=== PATIENT | female | born 1965 | race Two or more races ===

== ENCOUNTER 2021-04-17 08:58 | Outpatient (REF) | payer BC, SELFPAY ==
[2021-04-17 10:22] LABS: Binax Internal Control QC Valid; Binax Now Covid-19 Ag Positive (Negative)
== END 2021-04-17 08:59 | disposition home or self-care (01) ==
LOC: HO.LAB 08:58
PROVIDERS: Visit Provider Internal Medicine
DX: Z20.822 Contact with and (suspected) exposure to COVID-19 (principal)
CPT/HCPCS: 36415; C9803

== ENCOUNTER 2021-04-24 09:07 | Emergency (ER) | payer BC, SELFPAY ==
--- NOTE | ~2021-04-24 | XR_ITS ---
EXAMINATION: XR CHEST CLINICAL INFORMATION: SOB. COMPARISON: Chest 12/03/2017 TECHNIQUE: Frontal view of the chest was obtained. FINDINGS: The lungs are well-expanded and clear of acute process. The heart size and pulmonary vascularity is normal. No gross bony abnormality seen. XR/XR chest 1V IMPRESSION: Unremarkable chest examination.
[2021-04-24 09:09] VITALS: BP 181/108; PULSE 92; RESP 20; TEMP 36.6; O2SAT 97; BMI 37.2
--- NOTE | 2021-04-24 09:52 | ECG_ITS ---
Test Reason : chest pain/tightness Blood Pressure : / mmHG Vent. Rate : 073 BPM Atrial Rate : 073 BPM P-R Int : 114 ms QRS Dur : 084 ms QT Int : 404 ms P-R-T Axes : 060 053 038 degrees QTc Int : 445 ms Normal sinus rhythm Normal ECG When compared with ECG of 03-DEC-2017 16:14, No significant changes seen Referred By: Abigail Garay Electronically Signed By:BEBA SIGALA
--- NOTE | 2021-04-24 09:53 | ED_ITS ---
HPI - SOB/Dyspnea General Chief Complaint: Dyspnea Stated Complaint: cough diff breathing Time Seen by Provider: 04/24/21 09:33 Source: patient Mode of arrival: ambulatory Limitations: no limitations History of Present Illness HPI Narrative: Patient comes to emergency room complaining coughing and shortness of breath. Patient tested positive for COVID-19 on 04/17/2021. Patient states that she was improving, yesterday she return to work, when the mask makes her feel short of breath, had to leave her work. Patient denies chest pain, no calf pain. Related Data Previous Rx's Medication Instructions Recorded benznidazole 100 mg tablet 100 mg PO TID PRN #10 tab 04/24/21 Allergies Allergy/AdvReac Type Severity Reaction Status Date / Time No Known Allergies Allergy Unverified 12/27/19 16:14 Review of Systems Review of Systems: Constitutional : No Weight loss, No Fever, No Chills, No Night Sweats, No Fatigue, No Malaise ENT/Mouth : No Hearing loss, No Ear Pain, No Nasal Congestion, No Sinus Pain, No Hoarseness, No sore throat, No Rhinorrhea, No Swallowing Difficulty Eyes: No Eye Pain, No Swelling, No Redness, No Foreign Body, No Discharge, No Vision Changes Cardiovascular : No Chest Pain, No SOB, No Dyspnea on Exertion, No Orthopnea, No Edema, No Palpitations Respiratory : Complaining of Cough, No Sputum, complaining of shortness of breath which is worse when she wears her mask Gastrointestinal : No Nausea, No Vomiting, No Diarrhea, No Constipation, No abdominal Pain, No Hematochezia, No Melena Genitourinary : no irregular bleeding, No Dysuria, No Urinary Frequency, No Hematuria, No Urinary Incontinence, No Urgency, No Flank Pain, No Urinary Flow Changes, No Hesitancy Musculoskeletal : No joint pain, No Myalgias, No Joint Swelling Skin : No Skin Lesions, No rash Neuro : No Weakness, No Numbness, No Paresthesias, No Loss of Consciousness, No Dizziness, complaining of Headache Psych : No Anxiety/Panic, No Depression, No SI/HI/AH/VH, No Social Issues, Heme/Lymph: No Bruising, No Bleeding,No Lymphadenopathy Endocrine : No Polyuria, No Polydipsia, No Temperature Intolerance [facility] Past Medical History Medical History No pertinent past medical history Surgical History No pertinent past surgical history Social History Social History Advance Directives: No Advance Directives Information Provided: Yes Patient : No Physical Exam Vital Signs: Vital Signs: Last Vital Signs Temp 97.9 F 04/24/21 09:09 Pulse 72 04/24/21 10:20 Resp 16 04/24/21 10:20 BP 140/84 H 04/24/21 10:20 Pulse Ox 95 04/24/21 10:20 BMI result Body Mass Index 37.2 Const: Other: Appearance: Alert. Oriented X3. No acute distress. Well- appearing, seems anxious Eyes: Pupils equal, round and reactive to light. ENT: Pharynx normal. Neck: Normal inspection. Neck supple. No lymph nodes noted. No crepitus CVS: Normal heart rate and rhythm. Pulses normal. Normal S1 and S2 Respiratory: No respiratory distress. Breath sounds normal. No Wheezing. No rales Abdomen: Soft and nontender. No rigidity. No distention. good BS x4 Skin: Skin warm and dry. Normal skin color. Normal skin turgor. Extremities: No lower extremity edema. No Lacerations. No Rash Neuro: Oriented X 3. No motor deficit. No sensory deficit. Moving all extermities. No slurred speech. Course Course Course Narrative: Patient's oxygen saturation 95% on room air. We had patient walking around her room checking her oxygen, her oxygen did not drop. Chest x- ray unremarkable, D-dimer negative. MDM - SOB/Dyspnea Lab Data Result diagrams: 04/24/21 10:06 04/24/21 10:06 Labs: Lab Results 04/24/21 04/24/21 04/24/21 Range/Units 10:06 10:06 10:06 WBC 6.6 (4.8-10.8) X10*3/uL RBC 5.30 (4.20-5.50) X10*6/uL Hgb 15.2 (12.0-16.0) g/dl Hct 45.5 (37.0-47.0) % MCV 85.8 (80.0-98.0) fL MCH 28.7 (27.0-33.0) pg MCHC 33.4 (31.0-35.0) g/dl RDW 12.3 (11.0-16.0) % Plt Count 180 (160-400) X10*3/uL MPV 12.0 (9.4-12.3) fL Immature Gran % (Auto) 0.2 (0.0-0.4) % Neut % (Auto) 64.2 (45-73) % Lymph % (Auto) 27.9 (20-40) % [place] % (Auto) 6.5 (2-11) % Eos % (Auto) 0.9 (0-4) % Baso % (Auto) 0.3 (0-2) % Lymph # (Auto) 1.8 (1.2-4.9) X10*3/uL [place] # (Auto) 0.4 (0.1-1.2) X10*3/uL Eos # (Auto) 0.1 (0.0-0.4) X10*3/uL Baso # (Auto) 0.0 (0.0-0.2) X10*3/uL Abs Immat Gran (auto) 0.01 (0.00-0.03) X10*3/uL Absolute Neuts (auto) 4.2 (2.0-8.3) x10*3/uL Absolute Nucleated RBC 0.000 (0.0-0.012) X10*3/uL Nucleated RBC % (auto) 0.0 (0.0-0.2) /100WBC D-Dimer High Sensitivty < 150 NG/ML Sodium 137 (135-145) mmol/L Potassium 4.1 (3.3-5.1) mmol/L Chloride 106 (96-108) mmol/L Carbon Dioxide 23 (22-29) mmol/L Anion Gap 12 (12-20) BUN 10 (9-16) mg/dL Creatinine 0.77 (0.5-1.4) mg/dL Estim Creat Clear Calc 89.5 Estimated GFR > 60 Random Glucose 98 (60-115) mg/dL Calcium 9.3 (8.4-10.2) mg/dL Total Bilirubin 0.3 (0.0-1.0) mg/dL Direct Bilirubin < 0.2 (0.0-0.5) mg/dL AST 13 (5-31) U/L ALT 12 (0-31) U/L Alkaline Phosphatase 71 (39-117) U/L Total Protein 7.4 (6.5-8.0) g/dL Albumin 4.0 (3.5-5.0) g/dL Imaging Data Chest x-ray: Radiologist's impression: The lungs are well-expanded and clear of acute process. The heart size and pulmonary vascularity is normal. No gross bony abnormality seen. XR/XR chest 1V IMPRESSION: Unremarkable chest examination. Discharge Plan Discharge Clinical Impression: COVID-19 Patient Disposition: Home, Self-Care Instructions: COVID-19 (Coronavirus Disease 2019) (ED) Additional Instructions: Please follow-up with your primary care physician tomorrow. If you have any worsening or new symptoms, please return to the emergency room or call 911 Prescriptions: New benznidazole 100 mg tablet 100 mg PO TID PRN (Reason: cough) Qty: 10 RF: 0 Stand Alone Forms: Work/School Release
[2021-04-24 10:09] LABS: MANUAL DIFF FLAG NO
[2021-04-24 10:11] LABS: Basophils Percent Auto 0.3 % (0-2); Eosinophils Absolute Auto 0.1 X10*3/uL (0.0-0.4); Eosinophils Percent Auto 0.9 % (0-4); Hematocrit 45.5 % (37.0-47.0); Hemoglobin 15.2 g/dl (12.0-16.0); Imm Gran Abs Auto 0.01 X10*3/uL (0.00-0.03); Imm Gran Pct Auto 0.2 % (0.0-0.4); Lymphocytes Absolute Auto 1.8 X10*3/uL (1.2-4.9); Lymphocytes Percent Auto 27.9 % (20-40); Mean Corpuscular HGB Conc 33.4 g/dl (31.0-35.0); Mean Corpuscular Hemoglobin 28.7 pg (27.0-33.0); Mean Corpuscular Volume 85.8 fL (80.0-98.0); Monocytes Absolute Auto 0.4 X10*3/uL (0.1-1.2); Monocytes Percent Auto 6.5 % (2-11); Neutrophils Absolute Auto 4.2 x10*3/uL (2.0-8.3); Neutrophils Percent Auto 64.2 % (45-73); Platelet Count 180 X10*3/uL (160-400); Red Cell Distribution Width 12.3 % (11.0-16.0); White Blood Count 6.6 X10*3/uL (4.8-10.8)
[2021-04-24 10:20] VITALS: BP 140/84; PULSE 72; RESP 16; O2SAT 95
[2021-04-24 10:20] LABS: D Dimer High Sensitivity < 150 NG/ML
[2021-04-24 10:27] LABS: Alanine Aminotransferase 12 U/L (0-31); Alkaline Phosphatase 71 U/L (39-117); Anion Gap 12 (12-20); Aspartate Amino Transferase 13 U/L (5-31); Bilirubin Direct < 0.2 mg/dL (0.0-0.5); Bilirubin Total 0.3 mg/dL (0.0-1.0); Blood Urea Nitrogen 10 mg/dL (9-16); Calcium 9.3 mg/dL (8.4-10.2); Chloride 106 mmol/L (96-108); Creatinine Clr Calc Pharmacy 89.5; Estimated Glomerular Filt Rate > 60; Glucose Random 98 mg/dL (60-115); Potassium 4.1 mmol/L (3.3-5.1); Sodium 137 mmol/L (135-145); Total Protein 7.4 g/dL (6.5-8.0)
[2021-04-24 10:37] LABS: Carbon Dioxide 23 mmol/L (22-29)
[2021-04-24] MEDS: Benzonatate 100 MG CAPSULE 200 MG PO (12:24)
== END 2021-04-24 13:23 | disposition home or self-care (01) ==
PROVIDERS: Emergency Provider Emergency Medicine; PCP Internal Medicine
DX: U07.1 COVID-19 (principal); R06.02 Shortness of breath; R50.9 Fever, unspecified; Z79.899 Other long term (current) drug therapy
CPT/HCPCS: 36415; 71045; 80048; 80076; 85025; 85379; 93005; 99283; 99284

== ENCOUNTER 2021-05-30 06:35 | Outpatient (REF) | payer BC, SELFPAY ==
[2021-05-30 11:33] LABS: Alanine Aminotransferase 14 U/L (0-31); Albumin Level 3.9 g/dL (3.5-5.0); Alkaline Phosphatase 66 U/L (39-117); Anion Gap 12 (12-20); Aspartate Amino Transferase 17 U/L (5-31); Bilirubin Total 0.6 mg/dL (0.0-1.0); Blood Urea Nitrogen 12 mg/dL (9-16); Calcium 8.9 mg/dL (8.4-10.2); Carbon Dioxide 25 mmol/L (22-29); Chloride 107 mmol/L (96-108); Cholesterol 235 mg/dL; Estimated Glomerular Filt Rate > 60; Glucose Fasting 86 mg/dL (60-99); HDL Cholesterol 41 mg/dL; LDL Cholesterol Calculated 129 mg/dl; Potassium 4.2 mmol/L (3.3-5.1); Sodium 140 mmol/L (135-145); Triglycerides 329 mg/dL
== END 2021-05-30 06:36 | disposition home or self-care (01) ==
LOC: HO.HMGCLDS 06:35
PROVIDERS: PCP Internal Medicine; Visit Provider Internal Medicine
DX: Z00.00 Encounter for general adult medical examination without abnormal findings (principal); I10 Essential (primary) hypertension
CPT/HCPCS: 36415; 80053; 80061

== ENCOUNTER 2021-06-08 10:28 | Outpatient (REF) | payer BC, SELFPAY ==
--- NOTE | ~2021-06-08 | XR_ITS ---
EXAMINATION: XR SINUSES CLINICAL INFORMATION: Chronic sinusitis COMPARISON: None TECHNIQUE: 4 views FINDINGS: Visualized paranasal sinuses appear clear without air-fluid levels. No fractures are identified. No radiodense foreign bodies. XR/XR sinus min 3V IMPRESSION: No significant sinus abnormality evident by x-ray. Further evaluation with CT scan as clinically warranted.
== END 2021-06-08 10:29 | disposition home or self-care (01) ==
LOC: HO.HMGCX 10:28
PROVIDERS: PCP Internal Medicine; Visit Provider Internal Medicine
DX: J32.9 Chronic sinusitis, unspecified (principal)
CPT/HCPCS: 70220

== ENCOUNTER 2021-07-29 09:49 | Outpatient (REF) | payer BC, SELFPAY ==
[2021-07-29 10:13] LABS: Binax Now Covid-19 Ag Negative (Negative)
[2021-07-29 10:14] LABS: Binax Internal Control QC Valid
== END 2021-07-29 09:50 | disposition home or self-care (01) ==
LOC: HO.HMGCLDS 09:49
PROVIDERS: Visit Provider Nurse Practitioner Family
DX: Z13.89 Encounter for screening for other disorder (principal)

== ENCOUNTER 2021-08-17 14:17 | Outpatient (REF) | payer BC, SELFPAY ==
--- NOTE | 2021-08-17 15:28 | PFT_ITS ---
Forced vital capacity 99%, FEV1 96%, FEV1/FVC ratio is 76, NVS97-66 81%, and MVV 88%. All these values are in normal range. Post bronchodilator therapy, there is only slight improvement in YVE51-86. Total lung capacity 111%. Residual volume 110%. Diffusion capacity 99% CONCLUSION: Normal pulmonary function test. No evidence of obstructive or restrictive pulmonary disorder. MD CRISTINA Bagley/MODBarbra / [id number]
== END 2021-08-17 14:18 | disposition home or self-care (01) ==
LOC: HO.RESP 14:17
PROVIDERS: PCP Internal Medicine; Visit Provider Internal Medicine
DX: F17.200 Nicotine dependence, unspecified, uncomplicated (principal)
CPT/HCPCS: 94060; 94727; 94729

== ENCOUNTER 2022-01-25 06:27 | Outpatient (REF) | payer BC, SELFPAY ==
[2022-01-25 12:24] LABS: TSH reflex Free T4 2.41 uIU/mL (0.32-4.0)
[2022-01-25 12:41] LABS: Alanine Aminotransferase 15 U/L (0-31); Alkaline Phosphatase 69 U/L (39-117); Anion Gap 15 (12-20); Aspartate Amino Transferase 20 U/L (5-31); Bilirubin Total 0.6 mg/dL (0.0-1.0); Blood Urea Nitrogen 9 mg/dL (9-16); Calcium 8.9 mg/dL (8.4-10.2); Carbon Dioxide 25 mmol/L (22-29); Chloride 104 mmol/L (96-108); Cholesterol 223 mg/dL; Estimated Glomerular Filt Rate > 60; Glucose Fasting 92 mg/dL (60-99); HDL Cholesterol 45 mg/dL; LDL Cholesterol Calculated 125 mg/dl; Potassium 3.9 mmol/L (3.3-5.1); Sodium 140 mmol/L (135-145); Total Protein 6.9 g/dL (6.5-8.0); Triglycerides 269 mg/dL
== END 2022-01-25 06:28 | disposition home or self-care (01) ==
LOC: HO.HMGCLDS 06:27
PROVIDERS: PCP Internal Medicine; Visit Provider Internal Medicine
DX: J30.9 Allergic rhinitis, unspecified (principal); R05.9 Cough, unspecified; I10 Essential (primary) hypertension
CPT/HCPCS: 36415; 80053; 80061; 84443

== ENCOUNTER → 2022-03-22 09:31 | Outpatient (BNVA) | payer OTHER, SELFPAY | PROVIDERS: PCP Internal Medicine; Visit Provider Internal Medicine | DX: S16.1XXA Strain of muscle, fascia and tendon at neck level, initial encounter (principal); W20.8XXA Other cause of strike by thrown, projected or falling object, initial encounter | CPT/HCPCS: 72040; 99214 ==

== ENCOUNTER → 2022-03-25 07:49 | Outpatient (BNVA) | payer OTHER, SELFPAY | PROVIDERS: PCP Internal Medicine; Visit Provider Internal Medicine | DX: S16.1XXA Strain of muscle, fascia and tendon at neck level, initial encounter (principal); W20.8XXA Other cause of strike by thrown, projected or falling object, initial encounter | CPT/HCPCS: 99213 ==

== ENCOUNTER → 2022-03-30 14:45 | Outpatient (BNVA) | payer OTHER, SELFPAY | PROVIDERS: PCP Internal Medicine; Visit Provider Internal Medicine | DX: S16.1XXA Strain of muscle, fascia and tendon at neck level, initial encounter (principal); W20.8XXA Other cause of strike by thrown, projected or falling object, initial encounter | CPT/HCPCS: 99213 ==

== ENCOUNTER 2022-04-14 18:47 | Outpatient (REF) | payer BC, SELFPAY ==
[2022-04-14 19:29] LABS: Influenza A PCR NEGATIVE (Negative); Influenza B PCR NEGATIVE (Negative); Resp Syncy Virus RNA Qual PCR NEGATIVE (Negative); SARS COV2 PCR INHOUSE NEGATIVE (Negative)
== END 2022-04-14 18:48 | disposition home or self-care (01) ==
LOC: HO.LNP 18:47
PROVIDERS: Visit Provider Nurse Practitioner Family
DX: R53.83 Other fatigue (principal); R52 Pain, unspecified; Z20.822 Contact with and (suspected) exposure to COVID-19
CPT/HCPCS: 0241U

== ENCOUNTER 2022-04-18 12:41 | Emergency (ER) | payer BC, SELFPAY ==
--- NOTE | ~2022-04-18 | XR_ITS ---
EXAMINATION: XR CHEST CLINICAL INFORMATION: Cough and shortness of breath COMPARISON: Chest x-ray April 24, 2021 TECHNIQUE: 2 views of the chest were obtained. FINDINGS: Stable cardiac silhouette. Lungs are well aerated. There is no lobar consolidation. No pleural effusion or pneumothorax. Mild degenerative changes of the spine. XR/XR chest 2V IMPRESSION: No acute pulmonary pathology.
--- NOTE | 2022-04-18 13:02 | ED_ITS ---
HPI - URI/Sore Throat General Chief Complaint: Upper Respiratory Symptoms <ANTONIO Lomeli - Last Filed: 04/18/22 13:08> Stated Complaint: still not feeling well after antibiotics <ANTONIO Lomeli Last Filed: 04/18/22 13:08> Time Seen by Provider: 04/18/22 16:33 <ANTONIO Lomeli - Last Filed: 04/18/22 13:08> Source: patient <ANTONIO Crain Last Filed: 04/18/22 18:48> Mode of arrival: ambulatory <ANTONIO Crain Last Filed: 04/18/22 18:48> History of Present Illness HPI Narrative: 56-year-old female with a past medical history of hypertension, cigarette smoker, bronchitis treated with Z-Med and Prednisone which patient finished yesterday, presenting to the ED complaining of continued dry cough and SOB x 2 weeks. Reports chest discomfort/soreness from coughing. Denies fever, chills, recent travel, sick contacts, pedal edema <ANTONIO Crain Last Filed: 04/18/22 18:48> MD elicited complaint: cough <ANTONIO Crain Last Filed: 04/18/22 18:48> Onset (ago): week(s) <ANTONIO Crain Last Filed: 04/18/22 18:48> Related Data Home Medications: Previous Rx's Medication Instructions Recorded albuterol sulfate 90 mcg/actuation 2 puff inhalation Q6H PRN 05/08/21 aerosol inhaler (ProAir HFA) shortness of breath or wheezing #8.5 grams olmesartan 20 mg tablet 20 mg PO DAILY #90 tabs 10/02/21 azithromycin 250 mg tablet See Rx Instructions PO .COMPLEX #6 04/14/22 tabs prednisone 20 mg tablet 60 mg PO DAILY #9 tabs 04/14/22 albuterol sulfate 90 mcg/actuation 2 puff inhalation Q4-6H PRN 04/18/22 aerosol inhaler shortness of breath or wheezing #6.7 grams benzonatate 100 mg capsule 100 mg PO TID PRN cough #14 caps 04/18/22 fluticasone propionate 50 2 spray intranasal DAILY #16 grams 04/18/22 mcg/actuation nasal spray,suspension (Flonase Allergy Relief) hydrocodone-homatropine 5 mg-1.5 5 ml PO Q4-6H PRN cough 3 days #60 04/18/22 mg/5 mL (5 mL) oral syrup (Hycodan) mL <ANTONIO Lomeli - Last Filed: 04/18/22 13:08> Allergies/Adverse Reactions: Allergies Allergy/AdvReac Type Severity Reaction Status Date / Time No Known Allergies Allergy Verified 04/14/22 15:26 <ANTONIO Lomeli - Last Filed: 04/18/22 13:08> Review of Systems Review of Systems: Constitutional: No Fever, No Chills ENT/Mouth: No Ear Pain, No Nasal Congestion, No Sinus Pain, No Hoarseness, No sore throat, No Rhinorrhea, No Swallowing Difficulty Cardiovascular: No Chest Pain, + SOB Respiratory: + Cough, No Sputum, No Wheezing Gastrointestinal: No Nausea, No Vomiting, No Abdominal pain Genitourinary: No Dysuria, No Urinary Frequency, No Hematuria, No Flank Pain Musculoskeletal: No joint pain, No Myalgias, No Joint Swelling Skin: No Skin Lesions, No rash Neuro: No Weakness, No Numbness, No Paresthesias <ANTONIO Crain - Last Filed: 04/18/22 18:48> Yes all other systems are reviewed and are negative <ANTONIO Crain - Last Filed: 04/18/22 18:48> Constitutional: Constitutional: Reports as per HPI <ANTONIO Crain - Last Filed: 04/18/22 18:48> [facility] Past Medical History Attestation statement: The following information was validated with the patient. <ANTONIO Crain - Last Filed: 04/18/22 18:48> Medical History: Medical History Allergic rhinitis Annual physical exam Cough HTN (hypertension) No pertinent past medical history Sinusitis Tobacco dependence <ANTONIO Lomeli - Last Filed: 04/18/22 13:08> Surgical History: Surgical History History of appendectomy No pertinent past surgical history <ANTONIO Lomeli - Last Filed: 04/18/22 13:08> Family History Family History: Family History Father No problems noted. Mother Hypertension Stroke <ANTONIO Lomeli - Last Filed: 04/18/22 13:08> Social History Social History: Social History Housing: House Patient Tobacco Use Status: Current everyday Tobacco user Tobacco use type: Cigarette Cigarettes Per Day: 8 e-Cigarette/Vaping Use: Never Used Advance Directives: No Advance Directives Information Provided: No Current occupational status: employed Cognitive needs: No Hearing needs: No Vision needs: Yes <ANTONIO Lomeli Last Filed: 04/18/22 13:08> Physical Exam Vital Signs: Vital Signs: Last Vital Signs Temp 98 F 04/18/22 16:34 Pulse 75 04/18/22 18:00 Resp 16 04/18/22 18:00 BP 170/84 H 04/18/22 16:34 Pulse Ox 97 04/18/22 16:34 O2 Del Method 04/18/22 16:34 BMI result Body Mass Index 35.4 <ANTONIO Lomeli Last Filed: 04/18/22 13:08> Vital Signs: Last Vital Signs Temp 98 F 04/18/22 16:34 Pulse 75 04/18/22 18:00 Resp 16 04/18/22 18:00 BP 170/84 H 04/18/22 16:34 Pulse Ox 97 04/18/22 16:34 O2 Del Method 04/18/22 16:34 BMI result Body Mass Index 35.4 <ANTONIO Crain - Last Filed: 04/18/22 18:48> Const: General: cooperative, healthy appearing and no acute distress <ANTONIO Crain Last Filed: 04/18/22 18:48> Orientation/consciousness: patient oriented x3 <ANTONIO Crain Last Filed: 04/18/22 18:48> Limitations: no limitations <ANTONIO Crain Last Filed: 04/18/22 18:48> HEENT: Head: Yes normal to inspection and Yes atraumatic <ANTONIO Crain - Last Filed: 04/18/22 18:48> Ears: hearing grossly normal bilaterally <ANTONIO Crain - Last Filed: 04/18/22 18:48> General nose exam: Normal external nose present <ANTONIO Crain - Last Filed: 04/18/22 18:48> Face and sinus: Yes normal facial exam <ANTONIO Crain - Last Filed: 04/18/22 18:48> Eyes: General: appearance normal, both eyes and all related structures <Radha Longoria PA - Last Filed: 04/18/22 18:48> EOM: EOMs intact bilaterally <ANTONIO Crain - Last Filed: 04/18/22 18:48> Neck: Neck: Yes normal visual inspection and Yes no meningeal signs <ANTONIO Crain - Last Filed: 04/18/22 18:48> Resp: Effort & Inspection: normal respiratory effort and no respiratory distress <ANTONIO Crain - Last Filed: 04/18/22 18:48> Auscultation: wheezes expiratory wheezes, inspiratory wheezes and throughout and diminished lung sounds bilateral in the lower lung [place] <ANTONIO Crain - Last Filed: 04/18/22 18:48> Cardio: Rate: regular rate <ANTONIO Crain - Last Filed: 04/18/22 18:48> Heart sounds: S1 normal heart sound present and S2 normal heart sound present <ANTONIO Crain - Last Filed: 04/18/22 18:48> Skin: Rashes: no rashes <Radha Longoria PA - Last Filed: 04/18/22 18:48> Wounds: no wounds <Radha Longoria PA - Last Filed: 04/18/22 18:48> Neuro: General: patient oriented x3, tone normal and no meningeal signs <ANTONIO Crain - Last Filed: 04/18/22 18:48> Gait exam (Neuro): Normal gait present <ANTONIO Crain - Last Filed: 04/18/22 18:48> Extrem: General: Yes normal to inspection, Yes no pedal edema and Yes no calf tenderness <ANTONIO Crain Last Filed: 04/18/22 18:48> Course Course Course Narrative: RME13:06PM - 56yoF who repoprts she does smoke who is presenting to the ED c c/o cough/shortness of breath since after . Reports that she was seen on 04/14/2022 at the urgent care and placed on a Z-Med and prednisone just finished the prescription today and no symptomatic relief. Reports that she has been coughing all night. Denies recent travel or sick contacts that she is aware of. Denies any fevers, dizziness, headaches, neck pain/stiffness, chest pain, dyspnea on exertion, orthopnea, palpitations, nausea/vomiting, lower extremity edema or calf tenderness or any other symptoms complaints or concerns at this time. On exam patient's oxygen is 96% on room air otherwise all other vitals are within normal limits. Patient is noted to have decreased breath sounds with inspiratory and expiratory wheezing throughout. No rales/rhonchi noted. No ac cessory muscle usage noted. CV RRR. Plan: Patient will be sent back to the waiting room to be evaluated [place] [facility] COVID/RSV/flu swab and chest x-ray ordered. Patient will need a breathing treatment. <ANTONIO Lomeli - Last Filed: 04/18/22 13:08> RME13:06PM - 56yoF who repoprts she does smoke who is presenting to the ED c c/o cou gh/shortness of breath since after . Reports that she was seen on 04/14/2022 at the urgent care and placed on a Z-Med and prednisone just finished the prescription today and no symptomatic relief. Reports that she has been coughing all night. Denies recent travel or sick contacts that she is aware of. Denies any fevers, dizziness, headaches, neck pain/stiffness, chest pain, dyspnea on exertion, orthopnea, palpitations, nausea/vomiting, lower extremity edema or calf tenderness or any other symptoms complaints or concerns at this time. On exam patient's oxygen is 96% on room air otherwise all other vitals are within normal limits. Patient is noted to have decreased breath sounds with inspiratory and expiratory wheezing throughout. No rales/rhonchi noted. No accessory muscle usage noted. CV RRR. Plan: Patient will be sent back to the waiting room to be evaluated in [facility]. COVID/RSV/flu swab and chest x-ray ordered. Patient will need a breathing treatment. - COVID19/influenza/ RSV negative - CXR unremarkable 1838-- on re-evaluation after DuoNeb lungs CTA. Patient reports symptomatic improvement. Discharged home with albuterol inhaler, Hycodan, Tessalon Perles and close PCP follow-up <ANTONIO Crain - Last Filed: 04/18/22 18:48> Medications Administered Discontinued Medications Generic Name Dose Route Start Last Admin Trade Name Freq PRN Reason Stop Dose Admin Albuterol Sulfate 2.5 mg/ 5 mg 04/18/22 16:43 04/18/22 17:59 Albuterol Sulfate 2.5 mg INHALE 04/18/22 16:44 5 mg ONCE ONE Administration Benzonatate 100 mg 04/18/22 16:43 04/18/22 17:08 Benzonatate 100 Mg Capsule PO 04/18/22 16:44 100 mg ONCE ONE Administration Hydrocodone Bit/Homatropine Methylb 5 ml 04/18/22 16:43 04/18/22 17:14 Hydrocodone/Homat 5/1.5/5 Ml 5 Ml Syrup PO 04/18/22 16:44 5 ml ONCE ONE Administration <ANTONIO Lomeli - Last Filed: 04/18/22 13:08> Medications Administered Discontinued Medications Generic Name Dose Route Start Last Admin Trade Name Freq PRN Reason Stop Dose Admin Albuterol Sulfate 2.5 mg/ 5 mg 04/18/22 16:43 04/18/22 17:59 Albuterol Sulfate 2.5 mg INHALE 04/18/22 16:44 5 mg ONCE ONE Administration Benzonatate 100 mg 04/18/22 16:43 04/18/22 17:08 Benzonatate 100 Mg Capsule PO 04/18/22 16:44 100 mg ONCE ONE Administration Hydrocodone Bit/Homatropine Methylb 5 ml 04/18/22 16:43 04/18/22 17:14 Hydrocodone/Homat 5/1.5/5 Ml 5 Ml Syrup PO 04/18/22 16:44 5 ml ONCE ONE Administration <ANTONIO Crain - Last Filed: 04/18/22 18:48> Medical Decision Making Medical Decision Making MDM Narrative: 56-year-old female with a past medical history of hypertension, cigarette smoker, bronchitis treated with Z-Med and Prednisone which patient finished yesterday, presenting to the ED complaining of continued dry cough and SOB x 2 weeks. on exam vital signs stable, NAD/ nontoxic appearing, diffuse inspiratory and expiratory wheeze noted, no pedal edema/calf tenderness. Concern for viral syndrome vs continued bronchitis vs pneumonia. Lower suspicion for ACS/PE plan: COVID-19/influenza/ RSV testing, CXR, DuoNeb, reassess Please refer to course for remaining clinical decision making, interpretation of labs/imaging results, and discussions with consultants and/or family members. <ANTONIO Crain - Last Filed: 04/18/22 18:48> Differential Diagnosis Differential Diagnoses: The differential diagnosis associated with the presentation includes <ANTONIO Crain - Last Filed: 04/18/22 18:48> as above <ANTONIO Crain - Last Filed: 04/18/22 18:48> Lab Data Labs: Lab Results 04/18/22 Range/Units 14:43 Influenza Type A (PCR) NEGATIVE (Negative) Influenza Type B (PCR) NEGATIVE (Negative) RSV RNA Qual (PCR) NEGATIVE (Negative) SARS-CoV-2 RNA (RT-PCR) NEGATIVE (Negative) <ANTONIO Lomeli - Last Filed: 04/18/22 13:08> Lab Results 04/18/22 Range/Units 14:43 Influenza Type A (PCR) NEGATIVE (Negative) Influenza Type B (PCR) NEGATIVE (Negative) RSV RNA Qual (PCR) NEGATIVE (Negative) SARS-CoV-2 RNA (RT-PCR) NEGATIVE (Negative) <ANTONIO Crain - Last Filed: 04/18/22 18:48> Radiology Impression Discussion of test interpretation with radiology: I have reviewed the radiologist's reading. <ANTONIO Crain - Last Filed: 04/18/22 18:48> External Record Review External record reviewed: Outpatient record <ANTONIO Crain - Last Filed: 04/18/22 18:48> Prescription Management I considered prescription management with: Pain Medication, Antiviral and Antibiotic <ANTONIO Crain - Last Filed: 04/18/22 18:48> Discharge Plan Discharge Clinical Impression: Bronchitis <ANTONIO Lomeli Last Filed: 04/18/22 13:08> Patient Disposition: Home, Self-Care <ANTONIO Lomeli Last Filed: 04/18/22 13:08> Instructions: Acute Bronchitis (ED) <ANTONIO Lomeli Last Filed: 04/18/22 13:08> Additional Instructions: you tested negative for COVID-19, flu, RSV. Your x-ray is unremarkable use albuterol inhaler at home as needed for shortness of breath/ wheezing. Tessalon Perles are for cough. Flonase is a nasal decongestant. Hycodan is a cough syrup containing codeine, please use only as needed for sever e cough for the next 3 days please follow-up with her doctor. If symptoms persist or worsen return to the emergency department <ANTONIO Lomeli - Last Filed: 04/18/22 13:08> Prescriptions: New benzonatate 100 mg capsule 100 mg PO TID PRN (Reason: cough) Qty: 14 0RF albuterol sulfate 90 mcg/actuation HFA aerosol inhaler 2 puff inhalation Q4-6H PRN (Reason: shortness of breath or wheezing) Qty: 6.7 0RF fluticasone propionate [Flonase Allergy Relief] 50 mcg/actuation spray,suspension 2 spray intranasal DAILY Qty: 16 0RF Rx Instructions: administer into each nostril hydrocodone-homatropine [Hycodan] 5-1.5 mg/5 mL (5 mL) syrup 5 ml PO Q4-6H PRN (Reason: cough) 3 Days Qty: 60 0RF Rx Instructions: Partial Fill upon patient request. No Action albuterol sulfate [ProAir HFA] 90 mcg/actuation HFA aerosol inhaler 2 puff inhalation Q6H PRN (Reason: shortness of breath or wheezing) Qty: 8.5 3RF prednisone 20 mg tablet 60 mg PO DAILY Qty: 9 0RF azithromycin 250 mg tablet See Rx Instructions PO .COMPLEX Qty: 6 0RF Rx Instructions: take 500 mg today (day 1), then 250 mg for 4 days (days 2-5) PO olmesartan 20 mg tablet 20 mg PO DAILY Qty: 90 3RF <ANTONIO Lomeli - Last Filed: 04/18/22 13:08> Referrals: Tati Martinez MD [Primary Care Provider] - 3 days <ANTONIO Lomeli - Last Filed: 04/18/22 13:08> Stand Alone Forms: Work/School Release <ANTONIO Lomeli - Last Filed: 04/18/22 13:08>
[2022-04-18 13:05] VITALS: BP 178/92; PULSE 85; RESP 20; TEMP 36.6; O2SAT 96; BMI 35.4
[2022-04-18 15:26] LABS: Influenza A PCR NEGATIVE (Negative); Influenza B PCR NEGATIVE (Negative); Resp Syncy Virus RNA Qual PCR NEGATIVE (Negative); SARS COV2 PCR INHOUSE NEGATIVE (Negative)
[2022-04-18 16:34] VITALS: BP 170/84; PULSE 75; RESP 16; TEMP 36.6; O2SAT 97
[2022-04-18] MEDS: Benzonatate 100 MG CAPSULE PO (17:08)
[2022-04-18] MEDS: HYDROcodone/Homat 5/1.5/5 ML 5 ML SYRUP PO (17:14)
[2022-04-18] MEDS: Albuterol Sulfate 2.5 MG, Albuterol Sulfate (0.083%) 2.5 MG 5 MG INHALE (17:59)
[2022-04-18 18:00] VITALS: PULSE 75; RESP 16; O2SAT 98
== END 2022-04-18 18:53 | disposition home or self-care (01) ==
PROVIDERS: Physician Assistant Medical; Emergency Provider Internal Medicine; PCP Internal Medicine
DX: J40 Bronchitis, not specified as acute or chronic (principal); R05.9 Cough, unspecified; R06.02 Shortness of breath; F17.210 Nicotine dependence, cigarettes, uncomplicated; Z71.6 Tobacco abuse counseling; Z20.822 Contact with and (suspected) exposure to COVID-19; Z20.828 Contact with and (suspected) exposure to other viral communicable diseases
CPT/HCPCS: 0241U; 71046; 99284

== ENCOUNTER 2022-04-19 17:03 | Emergency (ER) | payer BC, SELFPAY ==
--- NOTE | 2022-04-19 17:04 | ED_ITS ---
HPI - Allergic Reaction General Chief complaint: Dyspnea <ANTONIO Crain Last Filed: 04/19/22 17:11> Stated complaint: Allergic reaction <ANTONIO Crain Last Filed: 04/19/22 17:11> Time Seen by Provider: 04/19/22 17:12 <ANTONIO Crain Last Filed: 04/19/22 17:11> Source: patient <ANTONIO Churchill Last Filed: 04/19/22 17:57> Mode of arrival: ambulatory <ANTONIO Churchill Last Filed: 04/19/22 17:57> Limitations: no limitations <ANTONIO Churchill Last Filed: 04/19/22 17:57> History of Present Illness HPI narrative: Patient is a 56 year old assigned female at with a history of HTN and recent bronchitis presenting to the emergency department today with a possible allergic reaction. Patient states that she drank some of her cough syrup for her recent bronchitis diagnosis and 15 minutes after she began to have some shortness of breath. Patient denies any dizziness, lightheadedness, abdominal pain, nausea, vomiting, fever, chills, blurry vision, double vision, loss of vision, chest pain, back pain, night sweats, pain with urination, increased urinary frequency, increased urinary urgency, blood in her urine or stool, syncope or a near syncopal episode, recent trauma or falls, bowel incontinence, bladder incontinence, bowel retention, bladder retention, or any other complaints at this time. <ANTONIO Churchill Last Filed: 04/19/22 17:57> MD complaint: allergic reaction <ANTONIO Churchill Last Filed: 04/19/22 17:57> Onset (ago): minute(s) <ANTONIO Churchill Last Filed: 04/19/22 17:57> Symptoms: difficulty breathing <ANTONIO Churchill Last Filed: 04/19/22 17:57> Severity: mild <ANTONIO Churchill Last Filed: 04/19/22 17:57> Treatment prior to arrival: none <ANTONIO Churchill Last Filed: 04/19/22 17:57> Previous Allergic Reaction History: none <ANTONIO Churchill Last Filed: 04/19/22 17:57> Related Data Home medications: Previous Rx's Medication Instructions Recorded albuterol sulfate 90 mcg/actuation 2 puff inhalation Q6H PRN 05/08/21 aerosol inhaler (ProAir HFA) shortness of breath or wheezing #8.5 grams olmesartan 20 mg tablet 20 mg PO DAILY #90 tabs 10/02/21 azithromycin 250 mg tablet See Rx Instructions PO .COMPLEX #6 04/14/22 tabs prednisone 20 mg tablet 60 mg PO DAILY #9 tabs 04/14/22 albuterol sulfate 90 mcg/actuation 2 puff inhalation Q4-6H PRN 04/18/22 aerosol inhaler shortness of breath or wheezing #6.7 grams benzonatate 100 mg capsule 100 mg PO TID PRN cough #14 caps 04/18/22 fluticasone propionate 50 2 spray intranasal DAILY #16 grams 04/18/22 mcg/actuation nasal spray,suspension (Flonase Allergy Relief) hydrocodone-homatropine 5 mg-1.5 5 ml PO Q4-6H PRN cough 3 days #60 04/18/22 mg/5 mL (5 mL) oral syrup (Hycodan) mL prednisone 20 mg tablet 20 mg PO DAILY 7 days #7 tabs 04/19/22 <ANTONIO Crain Last Filed: 04/19/22 17:11> Allergies/adverse reactions: Allergies Allergy/AdvReac Type Severity Reaction Status Date / Time No Known Allergies Allergy Verified 04/14/22 15:26 <ANTONIO Crain Last Filed: 04/19/22 17:11> Review of Systems Constitutional: Constitutional: Reports no additional constitutional complaints, Denies chills, Denies fever(s) and Denies night sweats <ANTONIO Churchill Last Filed: 04/19/22 17:57> Eyes: Eyes: Reports no additional eye complaints, Denies blurry vision, Denies change in vision, Denies diplopia, Denies eye discharge, Denies loss of vision and Denies eye pain <ANTONIO Churchill Last Filed: 04/19/22 17:57> ENT: Denies dizziness <ANTONIO Churchill Last Filed: 04/19/22 17:57> Cardiovascular: Cardiovascular: Reports no additional cardiovascular complaints, Denies chest pain, Denies lightheadedness, Denies Loss of Consciousness and Reports dyspnea <ANTONIO Churchill - Last Filed: 04/19/22 17:57> Respiratory: Respiratory: Reports no additional respiratory complaints and Reports dyspnea <ANTONIO Churchill - Last Filed: 04/19/22 17:57> Gastrointestinal: Gastrointestinal: Reports no additional gastrointestinal complaints, Denies abdominal pain, Denies melena, Denies hematochezia, Denies change in bowel habits and Denies change in stool character <ANTONIO Churchill - Last Filed: 04/19/22 17:57> Genitourinary: Genitourinary: Denies hematuria, Denies urinary frequency, Denies dysuria, Denies urinary incontinence, Denies urinary hesitancy and Denies urinary urgency <ANTONIO Churchill - Last Filed: 04/19/22 17:57> Musculoskeletal: Musculoskeletal: Reports no additional musculoskeletal complaints, Denies numbness and Denies tingling <ANTONIO Churchill - Last Filed: 04/19/22 17:57> Neurologic: Denies dizziness, Denies loss of vision, Denies numbness and Solomon es tingling <ANTONIO Churchill Last Filed: 04/19/22 17:57> Psychiatric: Psychiatric: Reports no additional psychiatric complaints <ANTONIO Churchill Last Filed: 04/19/22 17:57> Endocrine: Endocrine: Reports no additional endocrine complaints <ANTONIO Churchill - Last Filed: 04/19/22 17:57> Hematologic/Lymphatic: Hematologic/Lymphatic: Reports no additional hematologic/lymphatic complaints <ANTONIO Churchill - Last Filed: 04/19/22 17:57> Allergic/Immunologic: Allergic/Immunologic: Reports no additional allergic/immunologic complaints <ANTONIO Churchill - Last Filed: 04/19/22 17:57> PMFSH Past Medical History Attestation statement: The following information was validated with the patient. <ANTONIO Churchill Last Filed: 04/19/22 17:57> Source: old records reviewed and nursing notes reviewed <ANTONIO Churchill - Last Filed: 04/19/22 17:57> Medical History: Medical History Allergic rhinitis Annual physical exam Cough HTN (hypertension) No pertinent past medical history Sinusitis Tobacco dependence <ANTONIO Crain - Last Filed: 04/19/22 17:11> Surgical History: Surgical History History of appendectomy No pertinent past surgical history <ANTONIO Crain - Last Filed: 04/19/22 17:11> Family History Family History: Family History Father No problems noted. Mother Hypertension Stroke <ANTONIO Crain - Last Filed: 04/19/22 17:11> Social History Social History: Social History Housing: House Patient Tobacco Use Status: Current everyday Tobacco user Tobacco use type: Cigarette Cigarettes Per Day: 8 e-Cigarette/Vaping Use: Never Used Advance Directives: No Advance Directives Information Provided: No Current occupational status: employed Cognitive needs: No Hearing needs: No Vision needs: Yes <ANTONIO Crain - Last Filed: 04/19/22 17:11> Physical Exam ED Vital Signs: Vital Signs - 24 hr 04/19/22 17:06 04/19/22 17:17 04/19/22 17:25 Temperature 98.4 F Pulse Rate 94 83 77 Respiratory Rate 24 H 28 H 20 Blood Pressure 186/95 H 170/108 H Pulse Oximetry 96 94 Oxygen Delivery Method Room Air Room Air 04/19/22 17:34 Temperature Pulse Rate Respiratory Rate Blood Pressure 175/92 H Pulse Oximetry Oxygen Delivery Method BMI result Body Mass Index 37.2 <ANTONIO Crain - Last Filed: 04/19/22 17:11> Vital Signs - 24 hr 04/19/22 17:06 04/19/22 17:17 04/19/22 17:25 Temperature 98.4 F Pulse Rate 94 83 77 Respiratory Rate 24 H 28 H 20 Blood Pressure 186/95 H 170/108 H Pulse Oximetry 96 94 Oxygen Delivery Method Room Air Room Air 04/19/22 17:34 Temperature Pulse Rate Respiratory Rate Blood Pressure 175/92 H Pulse Oximetry Oxygen Delivery Method BMI result Body Mass Index 37.2 <ANTONIO Churchill - Last Filed: 04/19/22 17:57> Const General: cooperative, no acute distress, alert and awake <ANTONIO Churchill - Last Filed: 04/19/22 17:57> Nutritional Appearance: well nourished <ANTONIO Churchill - Last Filed: 04/19/22 17:57> Orientation/consciousness: patient oriented x3 <ANTONIO Churchill - Last Filed: 04/19/22 17:57> Limitations: no limitations <Lorene Peguero PA - Last Filed: 04/19/22 17:57> HENMT Head: Yes normal to inspection and Yes atraumatic <ANTONIO Churchill - Last Filed: 04/19/22 17:57> Ears: hearing grossly normal bilaterally and external ears normal <ANTONIO Churchill - Last Filed: 04/19/22 17:57> General nose exam: Normal external nose present, no nasal discharge noted and no epistaxis <ANTONIO Churchill - Last Filed: 04/19/22 17:57> Face and sinus: Yes normal facial exam, No abrasion and No laceration <ANTONIO Churchill - Last Filed: 04/19/22 17:57> Mouth: Normal oral and palatal mucosa present, no drooling and no muffled voice <ANTONIO Churchill - Last Filed: 04/19/22 17:57> Eyes General: appearance normal, both eyes and all related structures <ANTONIO Churchill - Last Filed: 04/19/22 17:57> Periorbital: periorbital findings normal <ANTONIO Churchill - Last Filed: 04/19/22 17:57> Eyelids: Yes eyelids normal <ANTONIO Churchill - Last Filed: 04/19/22 17:57> Conjunctivae: conjunctivae normal <ANTONIO Churchill - Last Filed: 04/19/22 17:57> Pupils: Equal, round and reactive pupils present <ANTONIO Churchill - Last Filed: 04/19/22 17:57> EOM: EOMs intact bilaterally <ANTONIO Churchill - Last Filed: 04/19/22 17:57> Neck Neck: Yes normal visual inspection, Yes full ROM and Yes no lymphadenopathy <Lorene Mcbridealma delia IA - Last Filed: 04/19/22 17:57> Chest Chest palpation & inspection: normal inspection of the chest <Lorene Mcbridealma delia IA - Last Filed: 04/19/22 17:57> Resp Effort & Inspection: normal respiratory effort and able to speak in complete sentences <Lorene Mcbridealma delia IA - Last Filed: 04/19/22 17:57> Auscultation: clear to auscultation bilaterally <Lorene Mcbridealma delia IA - Last Filed: 04/19/22 17:57> Cardio Rate: regular rate <Lorene Mcbridealma delia IA - Last Filed: 04/19/22 17:57> Rhythm: regular rhythm <Lorene Mcbridealma delia IA - Last Filed: 04/19/22 17:57> GI Inspection: Yes normal to inspection <Lorenemonique Mcbridealma delia IA - Last Filed: 04/19/22 17:57> Palpation (GI): Soft to palpation, not firm, nontender, no guarding and not rigid <Lorene Mcbridealma delia IA - Last Filed: 04/19/22 17:57> Neuro General: patient oriented x3 and moves all extremities <Lorenemonique McbrideANTONIO flannery - Last Filed: 04/19/22 17:57> Cranial nerves: Yes Equal, round and reactive pupils present <Lorene Mcbridealma delia IA - Last Filed: 04/19/22 17:57> Cognition (Neuro): normal cognition <Lorenemonique McbrideANTONIO flannery - Last Filed: 04/19/22 17:57> Motor exam (neuro): 5/5 motor strength present throughout <Lorene Mcbridealma delia IA - Last Filed: 04/19/22 17:57> Sensory Exam: Normal double simultaneous stimulation for sensation <Lorenemonique Mcbridealma delia IA - Last Filed: 04/19/22 17:57> Coordination: [id number] test normal <Lorenemonique McbrideANTONIO flannery - Last Filed: 04/19/22 17:57> Extrem General: Yes normal to inspection, Yes full ROM and Yes capillary refill normal <ANTONIO Churchill - Last Filed: 04/19/22 17:57> Psych Appearance: grossly normal <ANTONIO Churchill - Last Filed: 04/19/22 17:57> Mental Status: mental status grossly normal <ANTONIO Churchill - Last Filed: 04/19/22 17:57> Affect: normal affect <ANTONIO Churchill Last Filed: 04/19/22 17:57> Attitude: cooperative <ANTONIO Churchill Last Filed: 04/19/22 17:57> Thought process: Normal thought process present <ANTONIO Churchill Last Filed: 04/19/22 17:57> Thought content: Normal thought content present <ANTONIO Churchill Last Filed: 04/19/22 17:57> Insight: Good insight present (Psych) <ANTONIO Churchill Last Filed: 04/19/22 17:57> Course Course Course Narrative: RME--56-year-old female with a past medical history of hypertension, bronchitis seen and treated in our the ED yesterday prescribed Tessalon Perles, albuterol, Flonase, Hycodan, presenting to the ED c/o throat tightness, SOB & shakiness 15mins after taking Hycodan & inhaler. Reports feeling anxious. Pt very anxious on exam, oropharynx WNL, uvula midline, talking in complete sentences. Lung sounds coarse Benadryl, Pepcid and Neb tx ordered in triage <ANTONIO Crain - Last Filed: 04/19/22 17:11> Medications Administered Discontinued Medications Generic Name Dose Route Start Last Admin Trade Name Seymourq PRN Reason Stop Dose Admin Albuterol Sulfate 5 mg 04/19/22 17:23 04/19/22 17:25 Albuterol Sulfate (0.083%) 2.5 Mg/3 Ml Vial.Neb INHALE 04/19/22 17:24 5 mg ONCE ONE Administration Diphenhydramine HCl 50 mg 04/19/22 17:07 04/19/22 17:16 Diphenhydramine Hcl 25 Mg Capsule PO 04/19/22 17:08 50 mg ONCE ONE Administration Famotidine 20 mg 04/19/22 17:07 04/19/22 17:16 Famotidine 20 Mg Tablet PO 04/19/22 17:08 20 mg ONCE ONE Administration Methylprednisolone Sodium Succinate 60 mg 04/19/22 17:24 04/19/22 17:29 Methylprednisolone Sod Succ 125 Mg/2 Ml Vial IM 04/19/22 17:25 60 mg ONCE ONE Administration <ANTONIO Crain - Last Filed: 04/19/22 17:11> Medications Administered Discontinued Medications Generic Name Dose Route Start Last Admin Trade Name Stephon PRN Reason Stop Dose Admin Albuterol Sulfate 5 mg 04/19/22 17:23 04/19/22 17:25 Albuterol Sulfate (0.083%) 2.5 Mg/3 Ml Vial.Neb INHALE 04/19/22 17:24 5 mg ONCE ONE Administration Diphenhydramine HCl 50 mg 04/19/22 17:07 04/19/22 17:16 Diphenhydramine Hcl 25 Mg Capsule PO 04/19/22 17:08 50 mg ONCE ONE Administration Famotidine 20 mg 04/19/22 17:07 04/19/22 17:16 Famotidine 20 Mg Tablet PO 04/19/22 17:08 20 mg ONCE ONE Administration Methylprednisolone Sodium Succinate 60 mg 04/19/22 17:24 04/19/22 17:29 Methylprednisolone Sod Succ 125 Mg/2 Ml Vial IM 04/19/22 17:25 60 mg ONCE ONE Administration <ANTONIO Churchill - Last Filed: 04/19/22 17:57> Medical Decision Making Medical Decision Making MDM Narrative: Patient is a 56 year old assigned female at with a history of asthma and HTN presenting to the emergency department today with a possible allergic reaction. Patient's physical exam was unremarkable. I explained my physical exam findings to the patient. I answered all questions asked by the patient. Patient received PO Benadryl, PO Famotidine, IM Solu-Medrol, and a breathing treatment which she stated helped her symptoms significantly. I stressed the importance of the patient taking her medication as prescribed and stopping the cough syrup. I stressed the importance of the patient following up with her primary care provid er. I stressed the importance of the patient returning to the emergency department immediately if her symptoms were to worsen or if she were to develop any dizziness, shortness of breath, difficulty breathing, chest pain, blurry vision, loss of vision, nausea, vomiting, abdominal pain, fever, chills, back pain, or any other complaints. Patient verbalized agreement and understanding with this treatment plan and discharge. <ANTONIO Churchill - Last Filed: 04/19/22 17:57> Differential Diagnosis Differential Diagnoses: The differential diagnosis associated with the presentation includes <ANTONIO Churchill - Last Filed: 04/19/22 17:57> allergic reaction, anxiety <ANTONIO Churchill - Last Filed: 04/19/22 17:57> Discharge Plan Discharge Clinical Impression: Allergic reaction <ANTONIO Crain Last Filed: 04/19/22 17:11> Patient Disposition: Home, Self-Care <ANTONIO Crain Last Filed: 04/19/22 17:11> Instructions: General Allergic Reaction (ED) <ANTONIO Crain Last Filed: 04/19/22 17:11> Additional Instructions: STOP the prescribed cough syrup. Follow up with your primary care provider. Return to the emergency department immediately if your symptoms worsen or if you develop any dizziness, shortness of breath, difficulty breathing, chest pain, blurry vision, loss of vision, nausea, vomiting, abdominal pain, fever, chills, back pain, or any other complaints. <ANTONIO Crain - Last Filed: 04/19/22 17:11> Prescriptions: New prednisone 20 mg tablet 20 mg PO DAILY 7 Days Qty: 7 0RF No Action benzonatate 100 mg capsule 100 mg PO TID PRN (Reason: cough) Qty: 14 0RF albuterol sulfate 90 mcg/actuation HFA aerosol inhaler 2 puff inhalation Q4-6H PRN (Reason: shortness of breath or wheezing) Qty: 6.7 0RF fluticasone propionate [Flonase Allergy Relief] 50 mcg/actuation spray, suspension 2 spray intranasal DAILY Qty: 16 0RF Rx Instructions: administer into each nostril hydrocodone-homatropine [Hycodan] 5-1.5 mg/5 mL (5 mL) syrup 5 ml PO Q4-6H PRN (Reason: cough) 3 Days Qty: 60 0RF Rx Instructions: Partial Fill upon patient request. albuterol sulfate [ProAir HFA] 90 mcg/actuation HFA aerosol inhaler 2 puff inhalation Q6H PRN (Reason: shortness of breath or wheezing) Qty: 8.5 3RF prednisone 20 mg tablet 60 mg PO DAILY Qty: 9 0RF azithromycin 250 mg tablet See Rx Instructions PO .COMPLEX Qty: 6 0RF Rx Instructions: take 500 mg today (day 1), then 250 mg for 4 days (days 2-5) PO olmesartan 20 mg tablet 20 mg PO DAILY Qty: 90 3RF <ANTONIO Crain - Last Filed: 04/19/22 17:11> Referrals: Tati Martinez MD [Primary Care Provider] - <ANTONIO Crain - Last Filed: 04/19/22 17:11> Print Language: Ukrainian <ANTONIO Crain - Last Filed: 04/19/22 17:11>
[2022-04-19 17:06] VITALS: BP 186/95; PULSE 94; RESP 24; TEMP 36.9; O2SAT 96; BMI 37.2
[2022-04-19] MEDS: diphenhydrAMINE HCL 25 MG CAPSULE 50 MG PO (17:16)
[2022-04-19] MEDS: Famotidine 20 MG TABLET PO (17:16)
[2022-04-19 17:17] VITALS: BP 170/108; PULSE 83; RESP 28; O2SAT 94
[2022-04-19 17:25] VITALS: PULSE 77; RESP 20; O2SAT 93
[2022-04-19] MEDS: Albuterol Sulfate (0.083%) 2.5 MG/3 ML VIAL.NEB 5 MG INHALE (17:25)
[2022-04-19] MEDS: methylPREDNISolone Sod Succ 125 MG/2 ML VIAL 60 MG IM (17:29)
--- NOTE | 2022-04-19 17:32 | PC.NURSE ---
patient is awake and alert. skin pwd, resp even, labored. speaking in full, clear sentences. reports increased cough and throat tightness after taking hycodan cough syrup around 1615. no angioedema noted, airway patent. lungs tight w/ exp wheezes throughout. NSR via tele. pt aware of plan of care
[2022-04-19 17:34] VITALS: BP 175/92
[2022-04-19 18:07] VITALS: BP 150/88; PULSE 72; RESP 16; O2SAT 96
== END 2022-04-19 18:14 | disposition home or self-care (01) ==
PROVIDERS: Emergency Provider Emergency Medicine; PCP Internal Medicine
DX: R06.02 Shortness of breath (principal); T78.40XA Allergy, unspecified, initial encounter; X58.XXXA Exposure to other specified factors, initial encounter
CPT/HCPCS: 94640; 96372; 99284; J2930

== ENCOUNTER 2022-04-20 11:36 | Emergency (ER) | payer BC, SELFPAY ==
--- NOTE | ~2022-04-20 | XR_ITS ---
EXAMINATION: XR CHEST CLINICAL INFORMATION: Shortness of breath, rhonchorous COMPARISON: 04/18/2022 TECHNIQUE: 2 views of the chest were obtained. FINDINGS: The cardiomediastinal silhouette is mildly enlarged, stable. No consolidation, pleural effusion or pneumothorax. No acute osseous abnormalities. XR/XR chest 2V IMPRESSION: No acute cardiopulmonary process.
--- NOTE | 2022-04-20 07:27 | ECG_ITS ---
Test Reason : CP Blood Pressure : / mmHG Vent. Rate : 093 BPM Atrial Rate : 093 BPM P-R Int : 100 ms QRS Dur : 090 ms QT Int : 358 ms P-R-T Axes : 069 062 -03 degrees QTc Int : 445 ms Sinus rhythm with short PA Nonspecific ST abnormality Abnormal QRS-T angle, consider primary T wave abnormality Abnormal ECG When compared with ECG of 20-APR-2022 12:39, Nonspecific T wave abnormality no longer evident in Lateral leads Referred By: Bela Aguirre Electronically Signed By:Neeraj Chambers
[2022-04-20 11:45] VITALS: BP 210/110; PULSE 103; RESP 26; TEMP 36.7; O2SAT 95; BMI 37.2
--- NOTE | 2022-04-20 11:47 | ED_ITS ---
HPI - SOB/Dyspnea General Chief Complaint: Dyspnea <ANTONIO Bird - Last Filed: 04/20/22 11:51> Stated Complaint: Abnormal labs <ANTONIO Bird - Last Filed: 04/20/22 11:51> Time Seen by Provider: 04/20/22 11:54 <ANTONIO Bird - Last Filed: 04/20/22 11:51> Source: patient <Bela Aguirre MD - Last Filed: 04/20/22 16:02> Mode of arrival: ambulatory <Bela Aguirre MD - Last Filed: 04/20/22 16:02> History of Present Illness HPI Narrative: This is a 56-year-old female who comes in with increasing shortness of breath after she was diagnosed with bronchitis and then with an allergic reaction which was not associated with any angioedema/anaphylaxis and she was then subsequently discharged on prednisone 20 mg. Patient denies any fever, chills and simply states that she has had increased shortness of breath. She reports that she has tried the albuterol inhalers a couple of times but notes that she has not had any improvement. In addition, patient decided to stop taking her blood pressure medications for the past couple of days. <Bela Aguirre MD - Last Filed: 04/20/22 16:02> Related Data Home Medications: Previous Rx's Medication Instructions Recorded albuterol sulfate 90 mcg/actuation 2 puff inhalation Q6H PRN 05/08/21 aerosol inhaler (ProAir HFA) shortness of breath or wheezing #8.5 grams olmesartan 20 mg tablet 20 mg PO DAILY #90 tabs 10/02/21 azithromycin 250 mg tablet See Rx Instructions PO .COMPLEX #6 04/14/22 tabs prednisone 20 mg tablet 60 mg PO DAILY #9 tabs 04/14/22 albuterol sulfate 90 mcg/actuation 2 puff inhalation Q4-6H PRN 04/18/22 aerosol inhaler shortness of breath or wheezing #6.7 grams benzonatate 100 mg capsule 100 mg PO TID PRN cough #14 caps 04/18/22 fluticasone propionate 50 2 spray intranasal DAILY #16 grams 04/18/22 mcg/actuation nasal spray,suspension (Flonase Allergy Relief) hydrocodone-homatropine 5 mg-1.5 5 ml PO Q4-6H PRN cough 3 days #60 04/18/22 mg/5 mL (5 mL) oral syrup (Hycodan) mL prednisone 20 mg tablet 20 mg PO DAILY 7 days #7 tabs 04/19/22 <ANTONIO Bird - Last Filed: 04/20/22 11:51> Allergies/Adverse Reactions: Allergies Allergy/AdvReac Type Severity Reaction Status Date / Time No Known Allergies Allergy Verified 04/14/22 15:26 <ANTONIO Bird - Last Filed: 04/20/22 11:51> Review of Systems Review of Systems: Pertinent positives and negatives as stated in HPI. <Bela Aguirre MD - Last Filed: 04/20/22 16:02> [facility] Past Medical History Source: nursing notes reviewed <Bela Aguirre MD - Last Filed: 04/20/22 16:02> Medical History: Medical History Allergic rhinitis Annual physical exam Cough HTN (hypertension) No pertinent past medical history Sinusitis Tobacco dependence <ANTONIO Bird - Last Filed: 04/20/22 11:51> Surgical History: Surgical History History of appendectomy No pertinent past surgical history <ANTONIO Bird - Last Filed: 04/20/22 11:51> Family History Family History: Family History Father No problems noted. Mother Hypertension Stroke <ANTONIO Bird - Last Filed: 04/20/22 11:51> Social History Social History: Social History Housing: House Alcohol intake: never Patient Tobacco Use Status: Current everyday Tobacco user Tobacco use type: Cigarette Cigarettes Per Day: 8 Smoked in Last 30 Days: No e-Cigarette/Vaping Use: Never Used Use of substances other than those prescribed or required for medical reasons: No Advance Directives: No Advance Directives Information Provided: No Current occupational status: employed Cognitive needs: No Hearing needs: No Vision needs: Yes <ANTONIO Bird - Last Filed: 04/20/22 11:51> Physical Exam Vital Signs: Vital Signs: Last Vital Signs Temp 98.4 F 04/20/22 15:42 Pulse 82 04/20/22 15:42 Resp 20 04/20/22 15:42 BP 164/82 H 04/20/22 15:42 Pulse Ox 93 04/20/22 15:42 O2 Del Method 04/20/22 15:42 BMI result Body Mass Index 37.2 <ANTONIO Bird - Last Filed: 04/20/22 11:51> Vital Signs: Last Vital Signs Temp 98.4 F 04/20/22 15:42 Pulse 82 04/20/22 15:42 Resp 20 04/20/22 15:42 BP 164/82 H 04/20/22 15:42 Pulse Ox 93 04/20/22 15:42 O2 Del Method 04/20/22 15:42 BMI result Body Mass Index 37.2 VITAL SIGNS: Reviewed. GENERAL: Well developed, well nourished, in no acute distress. HEAD: Normocephalic/atraumatic EYES: PERRLA, EOMI EARS: Ext canals without abnormality NOSE: Nares patent bilateral OROPHARYNX: no oral lesions noted, posterior pharynx clear NECK: Supple, no adenopathy LUNGS: Coarse rales, with tachypnea. SpO2<93> CARDIOVASCULAR: Regular rate and rhythm without noted murmurs, no JVD bilateral lower edema ABDOMEN: Soft, non-tender, non-distended with bowel sounds. MUSCULOSKELETAL: No tenderness, deformities, or effusions noted on gross inspection. EXTREMITIES: No cyanosis, clubbing or edema. SKIN: Inspection of the skin reveals no rashes NEUROLOGIC: Alert and oriented x 4. Strength and sensation to light touch were grossly intact x 4. <Bela Aguirre MD - Last Filed: 04/20/22 16:02> Course Course Course Narrative: RME - 56 yo female with history of COPD, recently diagnosed bronchitis, seen here on 04/18 & 04/19 who is coming back with worsening SOB, especially when trying to speak. Symptoms worsening since Rafael. No fever, no chest pain. Found to be extremely hypertensive in triage, blood pressure 210/110, equal on both upper extremities. Did not take her home BP meds today. Patient very dyspneic, speaking in 3-4 word sentences, very coarse, rhonchorous and wheezy throughout. HR 100s. SpO2 95% on RA. To be brought back to treatment room now. Labs, EKG and CXR ordered. <ANTONIO Bird - Last Filed: 04/20/22 11:51> Medications Administered Discontinued Medications Generic Name Dose Route Start Last Admin Trade Name Freq PRN Reason Stop Dose Admin Amlodipine Besylate 5 mg 04/20/22 12:50 04/20/22 13:45 Amlodipine Besylate 5 Mg Tablet PO 04/20/22 12:51 5 mg ONCE ONE Administration Protocol Furosemide 20 mg 04/20/22 13:51 04/20/22 14:36 Furosemide 20 Mg/2 Ml Vial IVPUSH 04/20/22 13:52 20 mg ONCE ONE Administration Protocol <ANTONIO Bird - Last Filed: 04/20/22 11:51> Medications Administered Discontinued Medications Generic Name Dose Route Start Last Admin Trade Name Freq PRN Reason Stop Dose Admin Amlodipine Besylate 5 mg 04/20/22 12:50 04/20/22 13:45 Amlodipine Besylate 5 Mg Tablet PO 04/20/22 12:51 5 mg ONCE ONE Administration Protocol Furosemide 20 mg 04/20/22 13:51 04/20/22 14:36 Furosemide 20 Mg/2 Ml Vial IVPUSH 04/20/22 13:52 20 mg ONCE ONE Administration Protocol <Bela Aguirre MD - Last Filed: 04/20/22 16:02> Medical Decision Making Medical Decision Making MDM Narrative: 56-year-old female who arrives with a significantly elevated blood pressure, off of blood pressure medication for 2 days and no chest pain or focal deficits who is primarily complaining of shortness of breath. Suspect that she has underlying pulmonary edema from hypertension and she was counseled for 10 minutes on continuing with her blood pressure medications despite and especially because new medications have been added to her regimen. Most notably, patient had been started on prednisone which can significantly elevated blood pressure. I have reviewed all workup in my interpretation is that patient has a leukocytosis that is reflective of being started on prednisone. In addition, patient has elevated blood pressure is attributable to poor compliance as well as being on prednisone. Patient received both blood pressure medication as well as Lasix because suspect that patient developed pulmonary edema secondary to her high blood pressure. On re-evaluation patient's blood pressure has improved, patient reports improvement in breathing and she will be discharged home in stable condition with strict instructions to follow-up with her primary care provider and to continue to take her blood pressure medications. <Bela Aguirre MD - Last Filed: 04/20/22 16:02> Differential Diagnosis Please see the discussion above <Bela Aguirre MD - Last Filed: 04/20/22 16:02> Lab Data MDM Lab Attestation statement: I reviewed the patient's lab results. <Bela Aguirre MD - Last Filed: 16:02> Please see the discussion above <Bela Aguirre MD - Last Filed: 04/20/22 16:02> Result Diagrams: 04/20/22 12:19 04/20/22 12:19 <ANTONIO Bird - Last Filed: 04/20/22 11:51> Labs: Lab Results 04/20/22 04/20/22 04/20/22 Range/Units 12:19 12:19 12:19 WBC 25.0 H (4.8-10.8) X10*3/uL RBC 4.93 (4.20-5.50) X10*6/uL Hgb 14.2 (12.0-16.0) g/dl Hct 42.5 (37.0-47.0) % MCV 86.2 (80.0-98.0) fL MCH 28.8 (27.0-33.0) pg MCHC 33.4 (31.0-35.0) g/dl RDW 13.0 (11.0-16.0) % Plt Count 223 (160-400) X10*3/uL MPV 12.8 H (9.4-12.3) fL Immature Gran % (Auto) 1.0 H (0.0-0.4) % Neut % (Auto) 86.8 H (45-73) % Lymph % (Auto) 7.0 L (20-40) % Coffee % (Auto) 5.0 (2-11) % Eos % (Auto) 0.0 (0-4) % Baso % (Auto) 0.2 (0-2) % Lymph # (Auto) 1.7 (1.2-4.9) X10*3/uL Coffee # (Auto) 1.3 H (0.1-1.2) X10*3/uL Eos # (Auto) 0.0 (0.0-0.4) X10*3/uL Baso # (Auto) 0.1 (0.0-0.2) X10*3/uL Abs Immat Gran (auto) 0.25 H (0.00-0.03) X10*3/uL Absolute Neuts (auto) 21.7 H (2.0-8.3) x10*3/uL Absolute Nucleated RBC 0.000 (0.0-0.012) X10*3/uL Nucleated RBC % (auto) 0.0 (0.0-0.2) /100WBC Smear Tech's Comments VERIFIED Sodium 140 (135-145) mmol/L Potassium 4.2 (3.3-5.1) mmol/L Chloride 107 (96-108) mmol/L Carbon Dioxide 24 (22-29) mmol/L Anion Gap 13 (12-20) BUN 16 (9-16) mg/dL Creatinine 0.72 (0.5-1.4) mg/dL Estim Creat Clear Calc 94.6 Estimated GFR > 60 Random Glucose 99 (60-115) mg/dL Lactic Acid (0.5-2.0) mmol/L Calcium 9.6 D (8.4-10.2) mg/dL Magnesium 2.1 (1.6-2.6) mg/dL Total Bilirubin 0.3 (0.0-1.0) mg/dL Direct Bilirubin < 0.2 (0.0-0.5) mg/dL AST 13 (5-31) U/L ALT 15 (0-31) U/L Alkaline Phosphatase 86 (39-117) U/L B-Natriuretic Peptide 139 H (<100) pg/mL Total Protein 7.4 (6.5-8.0) g/dL Albumin 4.2 (3.5-5.0) g/dL Procalcitonin ng/mL Influenza Type A (PCR) (Negative) Influenza Type B (PCR) (Negative) RSV RNA Qual (PCR) (Negative) SARS-CoV-2 RNA (RT-PCR) (Negative) 01/01/3104/20/22 04/20/22 Range/Units 12:19 12:19 12:19 WBC (4.8-10.8) X10*3/uL RBC (4.20-5.50) X10*6/uL Hgb (12.0-16.0) g/dl Hct (37.0-47.0) % MCV (80.0-98.0) fL MCH (27.0-33.0) pg MCHC (31.0-35.0) g/dl RDW (11.0-16.0) % Plt Count (160-400) X10*3/uL MPV (9.4-12.3) fL Immature Gran % (Auto) (0.0-0.4) % Neut % (Auto) (45-73) % Lymph % (Auto) (20-40) % Coffee % (Auto) (2-11) % Eos % (Auto) (0-4) % Baso % (Auto) (0-2) % Lymph # (Auto) (1.2-4.9) X10*3/uL Coffee # (Auto) (0.1-1.2) X10*3/uL Eos # (Auto) (0.0-0.4) X10*3/uL Baso # (Auto) (0.0-0.2) X10*3/uL Abs Immat Gran (auto) (0.00-0.03) X10*3/uL Absolute Neuts (auto) (2.0-8.3) x10*3/uL Absolute Nucleated RBC (0.0-0.012) X10*3/uL Nucleated RBC % (auto) (0.0-0.2) /100WBC Smear Tech's Comments Sodium (135-145) mmol/L Potassium (3.3-5.1) mmol/L Chloride (96-108) mmol/L Carbon Dioxide (22-29) mmol/L Anion Gap (12-20) BUN (9-16) mg/dL Creatinine (0.5-1.4) mg/dL Estim Creat Clear Calc Estimated GFR Random Glucose (60-115) mg/dL Lactic Acid 1.9 (0.5-2.0) mmol/L Calcium (8.4-10.2) mg/dL Magnesium (1.6-2.6) mg/dL Total Bilirubin (0.0-1.0) mg/dL Direct Bilirubin (0.0-0.5) mg/dL AST (5-31) U/L ALT (0-31) U/L Alkaline Phosphatase (39-117) U/L B-Natriuretic Peptide (<100) pg/mL Total Protein (6.5-8.0) g/dL Albumin (3.5-5.0) g/dL Procalcitonin < 0.02 ng/mL Influenza Type A (PCR) NEGATIVE (Negative) Influenza Type B (PCR) NEGATIVE (Negative) RSV RNA Qual (PCR) NEGATIVE (Negative) SARS-CoV-2 RNA (RT-PCR) NEGATIVE (Negative) <ANTONIO Bird - Last Filed: 04/20/22 11:51> Lab Results 04/20/22 04/20/22 04/20/22 Range/Units 12:19 12:19 12:19 WBC 25.0 H (4.8-10.8) X10*3/uL RBC 4.93 (4.20-5.50) X10*6/uL Hgb 14.2 (12.0-16.0) g/dl Hct 42.5 (37.0-47.0) % MCV 86.2 (80.0-98.0) fL MCH 28.8 (27.0-33.0) pg MCHC 33.4 (31.0-35.0) g/dl RDW 13.0 (11.0-16.0) % Plt Count 223 (160-400) X10*3/uL MPV 12.8 H (9.4-12.3) fL Immature Gran % (Auto) 1.0 H (0.0-0.4) % Neut % (Auto) 86.8 H (45-73) % Lymph % (Auto) 7.0 L (20-40) % Coffee % (Auto) 5.0 (2-11) % Eos % (Auto) 0.0 (0-4) % Baso % (Auto) 0.2 (0-2) % Lymph # (Auto) 1.7 (1.2-4.9) X10*3/uL Coffee # (Auto) 1.3 H (0.1-1.2) X10*3/uL Eos # (Auto) 0.0 (0.0-0.4) X10*3/uL Baso # (Auto) 0.1 (0.0-0.2) X10*3/uL Abs Immat Gran (auto) 0.25 H (0.00-0.03) X10*3/uL Absolute Neuts (auto) 21.7 H (2.0-8.3) x10*3/uL Absolute Nucleated RBC 0.000 (0.0-0.012) X10*3/uL Nucleated RBC % (auto) 0.0 (0.0-0.2) /100WBC Smear Tech's Comments VERIFIED Sodium 140 (135-145) mmol/L Potassium 4.2 (3.3-5.1) mmol/L Chloride 107 (96-108) mmol/L Carbon Dioxide 24 (22-29) mmol/L Anion Gap 13 (12-20) BUN 16 (9-16) mg/dL Creatinine 0.72 (0.5-1.4) mg/dL Estim Creat Clear Calc 94.6 Estimated GFR > 60 Random Glucose 99 (60-115) mg/dL Lactic Acid (0.5-2.0) mmol/L Calcium 9.6 D (8.4-10.2) mg/dL Magnesium 2.1 (1.6-2.6) mg/dL Total Bilirubin 0.3 (0.0-1.0) mg/dL Direct Bilirubin < 0.2 (0.0-0.5) mg/dL AST 13 (5-31) U/L ALT 15 (0-31) U/L Alkaline Phosphatase 86 (39-117) U/L B-Natriuretic Peptide 139 H (<100) pg/mL Total Protein 7.4 (6.5-8.0) g/dL Albumin 4.2 (3.5-5.0) g/dL Procalcitonin ng/mL Influenza Type A (PCR) (Negative) Influenza Type B (PCR) (Negative) RSV RNA Qual (PCR) (Negative) SARS-CoV-2 RNA (RT-PCR) (Negative) 04/20/22 04/20/22 04/20/22 Range/Units 12:19 12:19 12:19 WBC (4.8-10.8) X10*3/uL RBC (4.20-5.50) X10*6/uL Hgb (12.0-16.0) g/dl Hct (37.0-47.0) % MCV (80.0-98.0) fL MCH (27.0-33.0) pg MCHC (31.0-35.0) g/dl RDW (11.0-16.0) % Plt Count (160-400) X10*3/uL MPV (9.4-12.3) fL Immature Gran % (Auto) (0.0-0.4) % Neut % (Auto) (45-73) % Lymph % (Auto) (20-40) % Coffee % (Auto) (2-11) % Eos % (Auto) (0-4) % Baso % (Auto) (0-2) % Lymph # (Auto) (1.2-4.9) X10*3/uL Coffee # (Auto) (0.1-1.2) X10*3/uL Eos # (Auto) (0.0-0.4) X10*3/uL Baso # (Auto) (0.0-0.2) X10*3/uL Abs Immat Gran (auto) (0.00-0.03) X10*3/uL Absolute Neuts (auto) (2.0-8.3) x10*3/uL Absolute Nucleated RBC (0.0-0.012) X10*3/uL Nucleated RBC % (auto) (0.0-0.2) /100WBC Smear Tech's Comments Sodium (135-145) mmol/L Potassium (3.3-5.1) mmol/L Chloride (96-108) mmol/L Carbon Dioxide (22-29) mmol/L Anion Gap (12-20) BUN (9-16) mg/dL Creatinine (0.5-1.4) mg/dL Estim Creat Clear Calc Estimated GFR Random Glucose (60-115) mg/dL Lactic Acid 1.9 (0.5-2.0) mmol/L Calcium (8.4-10.2) mg/dL Magnesium (1.6-2.6) mg/dL Total Bilirubin (0.0-1.0) mg/dL Direct Bilirubin (0.0-0.5) mg/dL AST (5-31) U/L ALT (0-31) U/L Alkaline Phosphatase (39-117) U/L B-Natriuretic Peptide (<100) pg/mL Total Protein (6.5-8.0) g/dL Albumin (3.5-5.0) g/dL Procalcitonin < 0.02 ng/mL Influenza Type A (PCR) NEGATIVE (Negative) Influenza Type B (PCR) NEGATIVE (Negative) RSV RNA Qual (PCR) NEGATIVE (Negative) SARS-CoV-2 RNA (RT-PCR) NEGATIVE (Negative) <Bela Aguirre MD - Last Filed: 04/20/22 16:02> Independent Interpretation I performed an independent interpretation of an: EKG <Bela Aguirre MD - Last Filed: 04/20/22 16:02> Interpretation: Sinus tachycardia with short NV, HR-105, no STEMI, there are noted ST depressions within the inferior leads (patient's initial blood pressure 210/ 110), shortened NV, QRS/QTC is within normal limits. <Bela Aguirre MD - Last Filed: 04/20/22 16:02> Radiology Impression Radiologist Impression: My interpretation is in agreement with radiology's impression of the imaging study. <Bela Aguirre MD - Last Filed: 04/20/22 16:02> External Record Review External record reviewed: Outpatient record and Prior outpatient labs <Bela Aguirre MD - Last Filed: 04/20/22 16:02> Chronic Conditions Patient?s care impacted by: Hypertension <Bela Aguirre MD - Last Filed: 04/20/22 16:02> Discharge Plan Discharge Clinical Impression: Hypertension, Pulmonary edema, Bronchitis <ANTONIO Bird - Last Filed: 04/20/22 11:51> Patient Disposition: Home, Self-Care <ANTONIO Bird - Last Filed: 04/20/22 11:51> Instructions: DASH Eating Plan (ED), Hypertension (ED), Pulmonary Edema (ED), Chronic Bronchitis (ED) <ANTONIO Bird - Last Filed: 04/20/22 11:51> Additional Instructions: 1. Resume all home medications especially your blood pressure medication. 2. Please call the office of your primary care provider today and set up an mary lou ointment for re-evaluation and further outpatient management. Do not hesitate to return to the emergency room for any sudden worsening of your symptoms <ANTONIO Bird - Last Filed: 04/20/22 11:51> Prescriptions: No Action benzonatate 100 mg capsule 100 mg PO TID PRN (Reason: cough) Qty: 14 0RF albuterol sulfate 90 mcg/actuation HFA aerosol inhaler 2 puff inhalation Q4-6H PRN (Reason: shortness of breath or wheezing) Qty: 6.7 0RF fluticasone propionate [Flonase Allergy Relief] 50 mcg/actuation s pray,suspension 2 spray intranasal DAILY Qty: 16 0RF Rx Instructions: administer into each nostril hydrocodone-homatropine [Hycodan] 5-1.5 mg/5 mL (5 mL) syrup 5 ml PO Q4-6H PRN (Reason: cough) 3 Days Qty: 60 0RF Rx Instructions: Partial Fill upon patient request. prednisone 20 mg tablet 20 mg PO DAILY 7 Days Qty: 7 0RF albuterol sulfate [ProAir HFA] 90 mcg/actuation HFA aerosol inhaler 2 puff inhalation Q6H PRN (Reason: shortness of breath or wheezing) Qty: 8.5 3RF prednisone 20 mg tablet 60 mg PO DAILY Qty: 9 0RF azithromycin 250 mg tablet See Rx Instructions PO .COMPLEX Qty: 6 0RF Rx Instructions: take 500 mg today (day 1), then 250 mg for 4 days (days 2-5) PO olmesartan 20 mg tablet 20 mg PO DAILY Qty: 90 3RF <ANTONIO Bird - Last Filed: 04/20/22 11:51> Referrals: Tati Martinez MD [Primary Care Provider] - <ANTONIO Bird - Last Filed: 04/20/22 11:51>
--- NOTE | 2022-04-20 11:50 | ECG_ITS ---
Test Reason : sob Blood Pressure : / mmHG Vent. Rate : 105 BPM Atrial Rate : 105 BPM P-R Int : 086 ms QRS Dur : 094 ms QT Int : 346 ms P-R-T Axes : 062 069 -75 degrees QTc Int : 457 ms Sinus tachycardia with short OK Cannot rule out Inferior infarct , age undetermined Abnormal ECG When compared with ECG of 24-APR-2021 10:10, ST now depressed in Inferior leads ST now depressed in Lateral leads T wave inversion now evident in Inferior leads Nonspecific T wave abnormality now evident in Lateral leads Referred By: Jany Lentz Electronically Signed By:Neeraj Chambers
[2022-04-20 12:26] VITALS: BP 183/87; PULSE 80; RESP 20; O2SAT 94
[2022-04-20 12:40] LABS: Basophils Absolute Auto 0.1 X10*3/uL (0.0-0.2); Basophils Percent Auto 0.2 % (0-2); Hematocrit 42.5 % (37.0-47.0); Hemoglobin 14.2 g/dl (12.0-16.0); Imm Gran Abs Auto 0.25 X10*3/uL (0.00-0.03); Lymphocytes Absolute Auto 1.7 X10*3/uL (1.2-4.9); MANUAL DIFF FLAG SCAN; Mean Corpuscular HGB Conc 33.4 g/dl (31.0-35.0); Mean Corpuscular Hemoglobin 28.8 pg (27.0-33.0); Mean Corpuscular Volume 86.2 fL (80.0-98.0); Mean Platelet Volume 12.8 fL (9.4-12.3); Monocytes Absolute Auto 1.3 X10*3/uL (0.1-1.2); Neutrophils Absolute Auto 21.7 x10*3/uL (2.0-8.3); Neutrophils Percent Auto 86.8 % (45-73); Platelet Count 223 X10*3/uL (160-400); Red Blood Count 4.93 X10*6/uL (4.20-5.50); SCAN SMEAR FLAG 1
[2022-04-20 12:49] LABS: Lactic Acid 1.9 mmol/L (0.5-2.0)
[2022-04-20 12:59] LABS: SLIDE REVIEW VERIFIED
[2022-04-20 13:03] LABS: Alanine Aminotransferase 15 U/L (0-31); Albumin Level 4.2 g/dL (3.5-5.0); Alkaline Phosphatase 86 U/L (39-117); Anion Gap 13 (12-20); Aspartate Amino Transferase 13 U/L (5-31); Bilirubin Direct < 0.2 mg/dL (0.0-0.5); Bilirubin Total 0.3 mg/dL (0.0-1.0); Blood Urea Nitrogen 16 mg/dL (9-16); Calcium 9.6 mg/dL (8.4-10.2); Carbon Dioxide 24 mmol/L (22-29); Chloride 107 mmol/L (96-108); Creatinine Clr Calc Pharmacy 94.6; Estimated Glomerular Filt Rate > 60; Glucose Random 99 mg/dL (60-115); Magnesium 2.1 mg/dL (1.6-2.6); Potassium 4.2 mmol/L (3.3-5.1); Sodium 140 mmol/L (135-145); Total Protein 7.4 g/dL (6.5-8.0)
[2022-04-20 13:05] LABS: B Type Natriuretic Peptide 139 pg/mL (<100)
[2022-04-20 13:15] LABS: Influenza A PCR NEGATIVE (Negative); Influenza B PCR NEGATIVE (Negative); Resp Syncy Virus RNA Qual PCR NEGATIVE (Negative); SARS COV2 PCR INHOUSE NEGATIVE (Negative)
[2022-04-20 13:33] LABS: Procalcitonin < 0.02 ng/mL
[2022-04-20 13:44] VITALS: BP 179/87; PULSE 84; RESP 18; O2SAT 94
[2022-04-20] MEDS: amLODIPine Besylate 5 MG TABLET PO (13:45)
--- NOTE | 2022-04-20 13:47 | PC.NURSE ---
pt medicated per provider order, vss, no new orders at this time.
[2022-04-20 14:06] VITALS: BP 173/93; PULSE 89; RESP 18; TEMP 36.8; O2SAT 97
[2022-04-20] MEDS: Furosemide 20 MG/2 ML VIAL IVPUSH (14:36)
[2022-04-20 15:42] VITALS: BP 164/82; PULSE 82; RESP 20; TEMP 36.9; O2SAT 93
== END 2022-04-20 16:38 | disposition home or self-care (01) ==
PROVIDERS: Physician Assistant; Emergency Provider Student in an Organized Health Care Education/Training Program; PCP Internal Medicine
DX: I10 Essential (primary) hypertension (principal); J81.1 Chronic pulmonary edema; J40 Bronchitis, not specified as acute or chronic; D72.829 Elevated white blood cell count, unspecified; R06.02 Shortness of breath; Z20.822 Contact with and (suspected) exposure to COVID-19; Z20.828 Contact with and (suspected) exposure to other viral communicable diseases; E78.5 Hyperlipidemia, unspecified; F17.200 Nicotine dependence, unspecified, uncomplicated; Z91.14 Patient's other noncompliance with medication regimen
CPT/HCPCS: 0241U; 36415; 71046; 80048; 80076; 83605; 83735; 83880; 84145; 85025; 87040; 93005; 96374; 99284; 99285; J1940

== ENCOUNTER 2022-04-22 13:27 | Outpatient (REF) | payer BC, SELFPAY ==
[2022-04-22 16:33] LABS: MANUAL DIFF FLAG NO
[2022-04-22 16:39] LABS: Basophils Absolute Auto 0.1 X10*3/uL (0.0-0.2); Basophils Percent Auto 0.7 % (0-2); Eosinophils Absolute Auto 0.1 X10*3/uL (0.0-0.4); Eosinophils Percent Auto 0.8 % (0-4); Hematocrit 46.5 % (37.0-47.0); Hemoglobin 14.7 g/dl (12.0-16.0); Imm Gran Pct Auto 0.7 % (0.0-0.4); Lymphocytes Percent Auto 29.8 % (20-40); Mean Corpuscular HGB Conc 31.6 g/dl (31.0-35.0); Mean Corpuscular Hemoglobin 27.8 pg (27.0-33.0); Mean Corpuscular Volume 88.1 fL (80.0-98.0); Mean Platelet Volume 13.1 fL (9.4-12.3); Monocytes Absolute Auto 0.8 X10*3/uL (0.1-1.2); Monocytes Percent Auto 5.7 % (2-11); Neutrophils Absolute Auto 8.4 x10*3/uL (2.0-8.3); Neutrophils Percent Auto 62.3 % (45-73); Platelet Count 211 X10*3/uL (160-400); Red Blood Count 5.28 X10*6/uL (4.20-5.50); Red Cell Distribution Width 13.2 % (11.0-16.0); SCAN SMEAR FLAG 1; White Blood Count 13.4 X10*3/uL (4.8-10.8)
[2022-04-22 16:47] LABS: D Dimer High Sensitivity < 150 NG/ML
[2022-04-22 16:51] LABS: Alanine Aminotransferase 15 U/L (0-31); Albumin Level 4.1 g/dL (3.5-5.0); Alkaline Phosphatase 86 U/L (39-117); Anion Gap 14 (12-20); Aspartate Amino Transferase 14 U/L (5-31); Bilirubin Total 0.3 mg/dL (0.0-1.0); Blood Urea Nitrogen 14 mg/dL (9-16); C Reactive Protein 0.29 mg/dL (< or = 0.50); Calcium 9.2 mg/dL (8.4-10.2); Carbon Dioxide 26 mmol/L (22-29); Chloride 104 mmol/L (96-108); Estimated Glomerular Filt Rate > 60; Glucose Random 84 mg/dL (60-115); Sodium 140 mmol/L (135-145); Total Protein 7.2 g/dL (6.5-8.0)
[2022-04-22 16:59] LABS: B Type Natriuretic Peptide 51 pg/mL (<100)
[2022-04-22 17:00] LABS: PLT ABN DIST 1
== END 2022-04-22 13:28 | disposition home or self-care (01) ==
LOC: HO.HMGCLDS 13:27
PROVIDERS: PCP Internal Medicine; Visit Provider Internal Medicine
DX: J06.9 Acute upper respiratory infection, unspecified (principal); R06.02 Shortness of breath
CPT/HCPCS: 36415; 80053; 83880; 85025; 85379; 86140

== ENCOUNTER 2022-05-07 09:36 | Outpatient (REF) | payer BC, SELFPAY ==
[2022-05-10 23:04] LABS: HPV mRNA E6/E7 rflx Not Detected (Not Detected)
== END 2022-05-07 09:37 | disposition home or self-care (01) ==
LOC: HO.LNP 09:36
PROVIDERS: PCP Internal Medicine; Visit Provider Advanced Practice Midwife
DX: Z01.419 Encounter for gynecological examination (general) (routine) without abnormal findings (principal); Z11.51 Encounter for screening for human papillomavirus (HPV)
CPT/HCPCS: 87624; 88142

== ENCOUNTER 2022-05-11 08:40 | Outpatient (REF) | payer BC, SELFPAY ==
--- NOTE | 2022-05-11 15:22 | PFT_ITS ---
FLOWS: FEV1 102% of predicted at 2.57 L. FVC 107% of predicted at 3.48 L. FEV1 to FVC ratio of 0.74. No bronchodilator response. LUNG VOLUMES: Total lung capacity 113% of predicted at 5.57 L. Residual volume 107% of predicted at 2.03 L. Slow vital capacity 117% of predicted at 3.54 L. Expiratory reserve volume 26% of predicted at 0.23 L. Diffusion capacity is normal. IMPRESSION: No obstructive or restrictive ventilatory defect. Decreased expiratory reserve volume suggests extrathoracic restriction likely secondary to abdominal obesity. Lucien Rabago MD AP/MODL / [id number]
== END 2022-05-11 08:41 | disposition home or self-care (01) ==
LOC: HO.RESP 08:40
PROVIDERS: PCP Internal Medicine; Visit Provider Internal Medicine
DX: J44.9 Chronic obstructive pulmonary disease, unspecified (principal)
CPT/HCPCS: 94060; 94727; 94729

== ENCOUNTER 2022-06-01 11:00 | Outpatient (RCR) | payer BC, SELFPAY ==
--- NOTE | 2022-05-11 08:23 | MHC.PT.EP ---
[facility] [place] Office [place] Office [place] Office [address] [phone] F: [phone] F: [phone] F: [phone] F: [phone] Physical Therapy Plan of Care Date of Evaluation: Date of Surgery: none Diagnosis: cervicalgia Assessment: Patient is a 56 year old R handed female who presents with s/s consistent with cervicalgia. 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 Patient past medical history is fairly unremarkable. Current impairments include pain with radicular s/s into ulnar nerve, C8 area, posture, ROM, strength, activity tolerance and functional mobility. Functional limitations include decreased ability to . Patient is motivated with good rehab potential. Skilled PT will address impairments and functional limitations in order to achieve goals. Frequency and Duration: The patient will be seen 2x/week for 5 weeks Short Term Goals: I with HEP - 2 weeks centralize s/s - 3 weeks TTP absent in R UT and LS - 3 weeks Steam Tender Goals: NPDI 12% - 5 weeks Pain free PLOF restored - 5 weeks R shoulder and arm strength 4/5 grossly - 5 weeks Treatment Plan: Modalities to reduce pain, spasms and effusion. Manual therapy to restore motion and function. Therapeutic exercise to improve strength and flexibility. Neuromuscular re-education for posture and balance. Therapeutic activities to return to functional activities of daily living. Electronically signed by: Stone Dawkins PT Please sign and return to therapist. Thank you for your referral.
--- NOTE | 2022-09-20 08:34 | MHC.PT.DC ---
[facility] [place] Office [place] [facility] [place] [facility] [address] Shannan Montano [address] [phone] F: [phone] F: [phone] F: [phone] F: [phone] Physical Therapy Discharge Report Diagnosis: cervicalgia Date of Surgery: none Date of Evaluation: 05/11/22 Date of Discharge: 07/13/22 Treatments to Date: 6 Cancellations to Date: No Shows to Date: Discharge Status: Improved Function Independent with HEP Discharge Summary: Pt elected to stop treatment after last visit. 05/27/22: pt with reduced severity and frequency of s/s and reduced tissue tension. 1 more visit until follow up. 05/25/22: s/s still intermittent in R UE. we are attempting to find optimal HEP. update NV. 05/21/22: pt with less s/s, still intermittently peripheral. we have been cautiously progressing HEP. 05/19/22: pt is progressing but was sick for a bit. we discussed morning stretching and mod of HEP. still with R sided TP/TTP in LS/UT. 05/14/22: progressed with posture and strength. no adverse reactions. minor discomfort to R shoulder and c-spine. Patient is a 56 year old R handed female who presents with s/s consistent with cervicalgia. 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 Patient past medical history is fairly unremarkable. Current impairments include pain with radicular s/s into ulnar nerve, C8 area, posture, ROM, strength, activity tolerance and functional mobility. Functional limitations include decreased ability to . Patient is motivated with good rehab potential. Skilled PT will address impairments and functional limitations in order to achieve goals. Electronically signed by: Stone Dawkins, PT Please sign and return to therapist. Thank you for your referral.
== END 2022-09-20 09:20 | disposition home or self-care (01) ==
LOC: HO.PTCHIC 11:00
PROVIDERS: PCP Internal Medicine; Visit Provider Internal Medicine
DX: M54.2 Cervicalgia (principal)
CPT/HCPCS: 97110; 97140; 97161

== ENCOUNTER → 2022-06-08 14:40 | Outpatient (REF) | payer BC, SELFPAY ==
--- NOTE | 2022-06-08 14:43 | CA_ITS ---
Transthoracic Echocardiogram Patient (Last, First, Middle): Christine Jose Z Gender: Female Date of : 1965 Age: 56 Procedure Date: 06/08/2022 Procedure Type: Transthoracic Echocardiogram Location: OP Height: 160.02 cm Weight: 95.26 kg BSA: 1.97 m2 Heart Rate: 79 bpm BP: 140 / 80 mmHg Paint Roller Covermaker: GREG Allen MD: Tati Martinez MD Ornament Setter: Gabriel Pizano MD Symptoms: I10 - Essential (primary) hypertension Study Quality: Fair ECG Rhythm: Sinus Conclusions: - 1. Normal LV systolic function with grade 1 diastolic dysfunction 2. Normal cardiac valvular Doppler 3. Normal RV systolic pressure 4. No pericardial effusion Findings Left Ventricle Normal left ventricular size, thickness, and systolic function. The visually estimated ejection fraction is between 55-60%. Spectral Doppler is indicative of an impaired relaxation filling pattern. E/E prime ratio is <8, consistent with normal filling pressures. Right Ventricle Normal right ventricular cavity size and systolic function. Atria The left atrium is normal in size. There is lipomatous hypertrophy of the interatrial septum. There is no evidence of interatrial shunt. The right atrium is normal in size. Aortic Valve Normal aortic valve structure and function. There is no aortic valve stenosis. There is no aortic valve regurgitation. Mitral Valve Normal mitral valve structure and function. There is trace mitral valve regurgitation. There is no mitral valve stenosis. Pulmonic Valve The pulmonic valve is likely normal. Tricuspid Valve Normal tricuspid valve structure. There is trace tricuspid valve regurgitation. The right ventricular systolic pressure is normal. The right ventricular systolic pressure is 19 mmHg. Normal right atrial pressure. There is no evidence of pulmonary hypertension. Great Vessels All visible segments of the aorta are normal in size. The pulmonary artery was not well visualized. Venous The inferior vena cava is normal in size and collapses greater than 50% with inspiration. Pericardium/Pleural There is no evidence of pericardial effusion. Prior Study Comparison No prior study available for comparison. Measurements 2D Linear Measurements IVSd: 1.23 0.6-0.9/0.6-1.0 cm LVIDd: 4.98 3.9-5.3/4.2-5.9 cm LVIDd Index: 2.53 2.4-3.2/2.2-3.1 cm/m2 LVIDs: 3.68 2.0-3.6 cm LVPWd: 0.98 0.7-1.1 cm LA Diam: 3.20 2.7-3.8/3.0-4.0 cm LAIDs Index: 1.62 1.5-2.3 cm/m2 LV Mass: 257.63 67-162/88-224 g LV Mass Index: 130.78 43-95/49-115 g/m2 LVOT Diam: 2.30 3.0+(-)1.3 cm 2D Systolic Function EF 4C: 50.10 >55% EF 2C: 64.00 >55% EF BiP: 57.00 >55% Mitral Valve MV Pk E: 0.59 MV PK A: 0.68 MV Decel Time: 258.00 E/A: 0.90 E'Lateral: 5.96 E'Medial: 6.75 E/E' Med: 8.80 E/E' Lat: 9.90 PHT: 75.00 MVA PHT: 2.93 Decel [place]: 2.29 Aortic Valve AoV Pk Dixon: 1.22 AoV Mn Dixon: 0.88 AoV VTI: 0.23 AoV Pk Grad: 6.00 Aov Mn Grad: 3.00 SARIKA Cont.VTI: 2.98 LVOT LVOT Pk Dixon: 0.88 LVOT Mn Dixon: 0.62 LVOT VTI: 0.17 LVOT Pk Grad: 3.00 LVOT Mn Grad: 2.00 LVOT Diam: 2.30 LVOT Area: 4.15 Diastolic Function MV Pk E: 0.59 MV Pk A: 0.68 E/A: 0.90 E'Medial: 6.75 E/E' Med: 8.80 E' Laterial: 5.96 E/E' Lat: 9.90 Right Ventricle TAPSE (mm): 23.30 TVS' Dixon: 11.30 Tricuspid Valve TR Pk Dixon: 2.00 TR Pk Grad: 16.00 RA Press: 3.00 RVSP: 19.00 Great Vessels Aorta Sinus of Valsalva: 3.20 2.0-3.5 cm Ao Asc: 3.20 2.1-3.4 cm Pulmonary Valve PV Pk Dixon: 0.68 Peak PV Grad: 2.00 Updated in Other Vendor System with Status of Final Gabriel Pizano MD electronically signed on 06/09/2022 3:17:50 PM with status of Final
== END ==
LOC: HO.CARD 14:40
PROVIDERS: PCP Internal Medicine; Visit Provider Internal Medicine
DX: I10 Essential (primary) hypertension (principal); J44.9 Chronic obstructive pulmonary disease, unspecified
CPT/HCPCS: 93306

== ENCOUNTER 2022-06-15 08:19 | Outpatient (REF) | payer BC, SELFPAY ==
--- NOTE | ~2022-06-15 | US_ITS ---
EXAMINATION: US ABDOMEN COMPLETE CLINICAL INFORMATION: Right upper quadrant pain. COMPARISON: None TECHNIQUE: Real-time imaging of the abdominal viscera. FINDINGS: PANCREAS: Normal. ABDOMINAL AORTA: The proximal, mid, and distal segments are normal in caliber. INFERIOR VENA CAVA: Visualized portions are normal. LIVER: The liver is normal in size. The liver contour is normal. Diffuse increased echogenicity. No focal hepatic lesion. There is no intrahepatic biliary duct dilatation seen. GALLBLADDER: No acute inflammatory changes. The gallbladder is physiologically distended. Multiple mobile gallstones are present. No evidence of gallbladder wall thickening or pericholecystic fluid. COMMON BILE DUCT: Normal in caliber measuring 0.6 cm in diameter. RIGHT KIDNEY: No hydronephrosis. No renal calculi or focal parenchymal lesions. The kidney measures 13.2 cm in maximum dimension. LEFT KIDNEY: No hydronephrosis. No renal calculi or focal parenchymal lesions. The kidney measures 11.6 cm in maximum dimension. SPLEEN: Normal. The spleen measures 9.5 cm in maximum dimension. FREE FLUID: None. US/US abdomen complete IMPRESSION: Gallstones without acute inflammatory changes.
== END 2022-06-15 08:20 | disposition home or self-care (01) ==
LOC: HO.HMGCX 08:19
PROVIDERS: PCP Internal Medicine; Visit Provider Internal Medicine
DX: R10.11 Right upper quadrant pain (principal)
CPT/HCPCS: 76700

== ENCOUNTER 2022-07-15 11:44 | Outpatient (REF) | payer BC, SELFPAY ==
--- NOTE | 2022-07-15 09:00 | EMG_ITS ---
Right median and ulnar motor and sensory studies were performed. Right radial and sensory study was performed and paraspinal muscles were tested with a needle. IMPRESSION: Mild right ulnar neuropathy across cubital tunnel. MD MARIE Byrne/RAUL / [id number]
== END 2022-07-15 11:45 | disposition home or self-care (01) ==
LOC: HO.NEURO 11:44
PROVIDERS: PCP Internal Medicine; Visit Provider Internal Medicine
DX: R20.0 Anesthesia of skin (principal)
CPT/HCPCS: 95886; 95909

== ENCOUNTER 2022-07-24 11:08 | Outpatient (REF) | payer BC, SELFPAY ==
[2022-07-24 11:45] LABS: MANUAL DIFF FLAG NO
[2022-07-24 11:54] LABS: Basophils Absolute Auto 0.1 X10*3/uL (0.0-0.2); Basophils Percent Auto 0.7 % (0-2); Eosinophils Absolute Auto 0.1 X10*3/uL (0.0-0.4); Eosinophils Percent Auto 1.7 % (0-4); Hematocrit 43.2 % (37.0-47.0); Hemoglobin 14.1 g/dl (12.0-16.0); Imm Gran Abs Auto 0.02 X10*3/uL (0.00-0.03); Imm Gran Pct Auto 0.3 % (0.0-0.4); Lymphocytes Absolute Auto 2.9 X10*3/uL (1.2-4.9); Mean Corpuscular HGB Conc 32.6 g/dl (31.0-35.0); Mean Corpuscular Hemoglobin 28.1 pg (27.0-33.0); Mean Corpuscular Volume 86.2 fL (80.0-98.0); Mean Platelet Volume 12.3 fL (9.4-12.3); Monocytes Absolute Auto 0.5 X10*3/uL (0.1-1.2); Monocytes Percent Auto 7.3 % (2-11); Neutrophils Absolute Auto 3.4 x10*3/uL (2.0-8.3); Platelet Count 202 X10*3/uL (160-400); Red Blood Count 5.01 X10*6/uL (4.20-5.50); Red Cell Distribution Width 12.8 % (11.0-16.0)
[2022-07-24 12:31] LABS: Alanine Aminotransferase 17 U/L (0-31); Alkaline Phosphatase 71 U/L (39-117); Anion Gap 12 (12-20); Aspartate Amino Transferase 19 U/L (5-31); Bilirubin Total 0.6 mg/dL (0.0-1.0); Blood Urea Nitrogen 12 mg/dL (9-16); Calcium 8.8 mg/dL (8.4-10.2); Carbon Dioxide 24 mmol/L (22-29); Chloride 111 mmol/L (96-108); Cholesterol 186 mg/dL; Estimated Glomerular Filt Rate > 60; Glucose Fasting 87 mg/dL (60-99); HDL Cholesterol 52 mg/dL; LDL Cholesterol Calculated 115 mg/dl; Potassium 4.4 mmol/L (3.3-5.1); Sodium 143 mmol/L (135-145); Total Protein 6.6 g/dL (6.5-8.0); Triglycerides 96 mg/dL
[2022-07-24 12:48] LABS: TSH reflex Free T4 1.06 uIU/mL (0.32-4.0)
[2022-07-24 13:30] LABS: Appearance Urine Cloudy; Color Urine Yellow; Glucose Urine UA Negative (Negative); Leukocyte Esterase Urine Negative (Negative); Nitrite Urine Negative (Negative); Specific Gravity - Urine >= 1.030 (1.005-1.025); Urine Blood Negative (Negative); Urine Ketones Negative (Negative); Urine Protein Negative (Neg-Trace)
[2022-07-24 13:36] LABS: Bacteria Urine None Seen (None Seen); Hyaline Casts Urine 0-2 /LPF (0-2); Other Crystals Urine Present; RBC Urine 0-2 /HPF (0-2); WBC Urine 0-5 /HPF (0-5)
== END 2022-07-24 11:09 | disposition home or self-care (01) ==
LOC: HO.HMGCLDS 11:08
PROVIDERS: PCP Internal Medicine; Visit Provider Internal Medicine
DX: Z00.00 Encounter for general adult medical examination without abnormal findings (principal); I10 Essential (primary) hypertension; E78.5 Hyperlipidemia, unspecified
CPT/HCPCS: 36415; 80053; 80061; 81001; 84443; 85025

== ENCOUNTER 2023-01-24 08:19 | Outpatient (AMB) | payer BC, SELFPAY ==
[2023-01-24 08:26] VITALS: BP 122/76; PULSE 74; O2SAT 98; BMI 35.4
--- NOTE | 2023-01-24 08:26 | A.OFFPC_ITS ---
Vital Signs 01/24/23 08:26 Height 5 ft 3 in Weight 200 lb BMI 35.4 BP 122/76 Blood Pressure Location Lt brachial Position Sitting Pulse 74 Pulse Source Pulse Oximeter Pulse Oximetry (%) 98 Oxygen Delivery Method Room Air Intake Visit Reasons: 6m follow up Intake Note: Pt is here today for 6 months follow up visit. Allergies homatropine [From Hycodan (with homatropine)] Allergy (Severe, Verified 01/24/23 08:40) SOB hydrocodone [From Hycodan (with homatropine)] Allergy (Severe, Verified 01/24/23 08:40) SOB Medication List - Last Reconciled 01/24/23 by Tati Martinez MD albuterol sulfate 0.63 mg (3 mL) inhalation QID PRN nebulizers (AeroEclipse II Nebulizer) As directed olmesartan 20 mg PO DAILY Tobacco use date assessed: 01/24/23 Dental Screening Dental Screen Date: 01/24/23 Did you have a dental visit in the last 12 months?: Yes Did you have a dental problem in the last 6 months where you did not have access to dental care?: No Was dental information given to patient?: Patient has dentist HPI 6m follow up HPI Details PATIENT PRESENTS FOR THE FOLLOW-UP OF HYPERTENSION CONTROLLED ON [place]. [facility] Medical History Allergic rhinitis Cough Tobacco dependence Sinusitis HTN (hypertension) Annual physical exam No pertinent past medical history Surgical History History of appendectomy No pertinent past surgical history Family History Father No problems noted. 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 1. Little interest or pleasure in doing things: not at all 2. Feeling down, depressed, or hopeless: not at all 3. Trouble falling or staying asleep, or sleeping too much: not at all 4. Feeling tired or having little energy: not at all 5. Poor appetite or overeating: not at all 6. Feeling bad about yourself - or that you are a failure or have let yourself or your family down: not at all 7. Trouble concentrating on things, such as reading the newspaper or watching television: not at all 8. Moving or speaking so slowly that other people could have noticed. Or the opposite - being so fidgety or restless that you have been moving around a lot more than usual: not at all 9. Thoughts that you would be better off or of hurting yourself in some way: not at all Total score: 0 Depression Screening Interpretation: Negative Depression Screening Done: Yes Source: Developed by Drs. Delfino Rm, Rajni Briceño, Fahad Crawford and colleagues, with an educational peter from [employer]. Thrive Questionnaire Date Thrive assessed: 01/24/23 I am a: Patient What is your living situation today?: I have a steady place to live Within the past 12 months, did the food you bought not last and you didn't have the money to get more?: Never true Within the past 12 months, did you worry whether your food would run out before you got money to buy more?: Never true Do you have trouble paying for medicines?: No Do you have trouble getting transportation to medical appointments?: No Do you have trouble paying your heating and electricity bill?: No Do you have trouble taking care of your child, family member or friend?: No Do you have trouble with day-to-day activities such as bathing, preparing meals, shopping, managing finances, etc.?: No Are you currently unemployed and looking for a job?: No Are you interested in more education?: No Please select the resources that you would like help with: None Currently or been in a relationship where the following occur: no concerns reported CRISTINA-7 AMB Questionnaire CRISTINA-7 Date CRISTINA - 7 assessed: 01/24/23 Feeling nervous, anxious, or on edge: 0 = Not at all Not being able to stop or control worryin = Not at all Worrying too much about different things: 0 = Not at all Trouble relaxin = Not at all Being so restless that it is hard to sit still: 0 = Not at all Becoming easily annoyed or irritable: 0 = Not at all Feeling afraid as if something awful might happen: 0 = Not at all Total CRISTINA-7 score (0-4 normal; 5-9 mild; 10-14 moderate; 15-21 severe): 0 Source: Developed by Drs. Delfino Rm, Rajni Briceño, Fahad Crawford and colleagues, with an educational peter from [employer]. Review of Systems Const All systems reviewed & are unremarkable except as noted in HPI and below Reports no additional complaints Eyes Reports no additional complaints ENT Reports no additional complaints Card Reports no additional complaints Resp Reports no additional complaints GI Reports no additional complaints Reports no additional complaints Physical exam (Primary Care) Vital Signs: Last Vital Signs Pulse 74 01/24/23 08:26 BP 122/76 01/24/23 08:26 Pulse Ox 98 01/24/23 08:26 Oxygen Delivery Method Room Air 01/24/23 08:26 BMI result Body Mass Index 35.4 Tobacco/Smoking Status: Tobacco use Status Tobacco use date assessed 01/24/23 01/24/23 08:44 Patient Tobacco Use Status Current everyday Tobacco (2 01/24/23 08:27 a week) Tobacco use type 04/22/22 13:25 e-Cigarette/Vaping Use Never Used 01/24/23 08:27 PHQ-9: PHQ-9 Score PHQ-9: Total score 0 01/24/23 08:59 Depression Screening Interpretation: Negative Thrive Assessment: Date of Thrive Assessment Date Thrive assessed 01/24/23 01/24/23 08:44 Currently or been in a relationship where the following occur: no concerns reported Const General: no acute distress HENMT Face and sinus: Yes normal facial exam Resp Effort & Inspection: normal respiratory effort Auscultation: clear to auscultation bilaterally Cardio Rhythm: regular rhythm Heart sounds: S1 normal heart sound present and S2 normal heart sound present GI Inspection: Yes normal to inspection Assessment and Plan Assessment & Plan (1) COPD (chronic obstructive pulmonary disease): Comment: Spirometry moderate obstruction 06/03, Pt declined inhalers Code(s): J44.9 - Chronic obstructive pulmonary disease, unspecified Plan: Tobacco quitting discussed with the patient (2) HTN (hypertension): Code(s): I10 - Essential (primary) hypertension Plan: Continue olmesartan, return for physical in 6 months with a fasting labs before Medications: Refilled olmesartan 20 mg PO DAILY 90 tabs 3RF Coding Level of Care Code Est Pt Level 3 (50807) Diagnoses COPD (chronic obstructive pulmonary disease) J44.9 HTN (hypertension) I10
== END 2023-01-24 08:59 | disposition home or self-care (01) ==
PROVIDERS: Visit Provider Internal Medicine
DX: J44.9 Chronic obstructive pulmonary disease, unspecified (principal); I10 Essential (primary) hypertension
CPT/HCPCS: 99213

== ENCOUNTER 2023-05-11 14:37 | Outpatient (AMB) | payer BC, SELFPAY ==
--- NOTE | 2023-05-11 15:08 | MHC.OFFVIS ---
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 She is doing well with no concerns. Attempting to eat a healthy diet with calcium and vitamin D and stays active with exercise. Currently not sexually active. Denies any vaginal dryness or irritation. Last pap smear; 2021. Last mammogram; 2022. Colonoscopy is UTD. Denies any family history of breast, ovarian or colon cancer. [facility] Medical History Allergic rhinitis Cough Tobacco dependence Sinusitis HTN (hypertension) Annual physical exam No pertinent past medical history Surgical History History of appendectomy No pertinent past surgical history Family History Father No problems noted. 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 [employer] Sexual orientation: Straight/Heterosexual Gender identity: Female Cognitive needs: No Hearing needs: No Vision needs: Yes Female Reproductive History Menstrual Total pregnancies: 2 Full term: 2 Number of Living Children: 2 Date of last pap smear: 05/07/22 (neg pap and hpv) Date of Mammogram: 01/24/23 (Birad 1) Review of Systems Const All systems reviewed & are unremarkable except as noted in HPI and below Reports as per HPI Eyes Reports no additional complaints ENT Reports no additional complaints Card Reports no additional complaints Resp Reports no additional complaints GI Reports as per HPI and Reports no additional complaints Reports as per HPI Musc Reports no additional complaints Skin/Breast Reports as per HPI Neuro Reports no additional complaints Psych Reports no additional complaints Endo Reports no additional complaints Hari/Lymph Reports no additional complaints Aller/Immun Reports no additional complaints Physical Exam Vital Signs: Last Vital Signs BP 122/74 05/11/23 15:09 BMI result Body Mass Index 36.3 Const General: cooperative, healthy appearing, no acute distress, well developed and alert Orientation/consciousness: patient oriented x3 HEENT Head: Yes normal to inspection Eyes General: appearance normal, both eyes and all related structures Neck Neck: Yes normal visual inspection Thyroid: Thyroid normal Chest Chest palpation & inspection: normal inspection of the chest and other (no puckering, dimpling, peau de orange, retraction, discharge, masses) Breast/axilla inspection: normal inspection of the breasts Breast/axilla palpation: normal palpation of the breasts Resp Effort & Inspection: normal respiratory effort GI Inspection: Yes normal to inspection Palpation (GI): Soft to palpation Rectal Exam - Female: deferred General: Yes bladder normal to palpation External Female Exam: normal external appearance and normal appearance of the urethra Speculum Exam - Vagina: normal appearance of the vagina, normal palpation, normal vaginal discharge and vagina atrophic Speculum Exam - Cervix: normal appearance of the cervix and normal palpation Bimanual exam- vagina & uterus: normal bimanual exam, normal palpation, uterine size normal, bladder normal to palpation, normal palpation and non-tender Bimanual Exam- Adnexa, other: no masses Skin General skin exam: no rashes or lesions noted Rashes: no rashes Neuro General: patient oriented x3 Cognition (Neuro): normal cognition Extrem General: Yes normal to inspection Psych Attitude: cooperative Thought process: Normal thought process present Assessment & Plan Assessment & Plan (1) Encounter for well woman exam with routine gynecological exam: Code(s): Z01.419 - Encounter for gynecological examination (general) (routine) without abnormal findings Plan Discussed: Current recommendations for pap smears per ASCCP guidelines. Breast awareness, periodic self breast exams and yearly mammogram. Maintain a healthy lifestyle, well balanced diet including Calcium 1,200 mg and Vitamin D 600 IU daily, and routine exercise. Contact the office with any postmenopausal bleeding. Patient verbalizes understanding and agrees to the plan of care. She was given opportunity to ask questions and all questions were answered to the best of my ability. RTO in 1 year for annual r d intern exam. This note is constructed using voice recognition software. While every effort has been made to ensure accuracy, environmental communications specialist errors may have been included. Coding Level of Care Code Est Pt Prev Care 40-64y(56118) Diagnoses Encounter for well woman exam with routine gynecological exam Z01.419
[2023-05-11 15:09] VITALS: BP 122/74; BMI 36.3
== END 2023-05-11 15:37 | disposition home or self-care (01) ==
LOC: HO.HWS 14:37
PROVIDERS: PCP Internal Medicine; Visit Provider Advanced Practice Midwife
DX: Z01.419 Encounter for gynecological examination (general) (routine) without abnormal findings (principal)
CPT/HCPCS: 99396

== ENCOUNTER → 2023-05-11 14:37 | Outpatient (BNVA) | payer BC, SELFPAY | PROVIDERS: PCP Internal Medicine; Visit Provider Advanced Practice Midwife ==

== ENCOUNTER → 2023-06-09 08:32 | Outpatient (BNVA) | payer OTHER, SELFPAY | PROVIDERS: PCP Internal Medicine; Visit Provider Physician Assistant | DX: M65.311 Trigger thumb, right thumb (principal) | CPT/HCPCS: 73140; 99204 ==

== ENCOUNTER 2023-06-14 08:05 | Outpatient (AMB) | payer BC, SELFPAY ==
--- NOTE | 2023-06-14 08:13 | AM.OFFWIN_ITS ---
Intake Vital Signs 06/14/23 08:14 Height 5 ft 3 in Weight 205 lb BMI 36.3 BP 142/84 H Blood Pressure Location Rt brachial Position Sitting Pulse 74 Pulse Source Pulse Oximeter Temp 98.3 F Temp Source Oral Pulse Oximetry (%) 97 Oxygen Delivery Method Room Air Intake Visit Reasons: EP Cough, Body ache, Sinus (masked) Intake Note: pt is here for c.o cough, body aches, sinus issues since tuesday Patient Tobacco Use Status: Current everyday Tobacco user (2 a week) Allergies homatropine [From Hycodan (with homatropine)] Allergy (Severe, Verified 06/14/23 08:41) SOB hydrocodone [From Hycodan (with homatropine)] Allergy (Severe, Verified 06/14/23 08:41) SOB Medication List - Last Reconciled 06/14/23 by Ronal Hugehs MD albuterol sulfate 0.63 mg (3 mL) inhalation QID PRN nebulizers (AeroEclipse II Nebulizer) As directed olmesartan 20 mg PO DAILY Do you need a note to return to daycare/school/sports/work: Yes HPI EP Cough, Body ache, Sinus (masked) HPI Details Patient presents for a sick visit. Reporting symptoms of sinus congestion, sore throat and difficulty swallowing. Low-grade fever. No family member is sick. No recent travel. Patient reports symptoms of malaise and fatigue. COUNT INCLUDES THE [facility] Medical History Allergic rhinitis Cough Tobacco dependence Sinusitis HTN (hypertension) Annual physical exam No pertinent past medical history Surgical History History of appendectomy No pertinent past surgical history Family History Father No problems noted. 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[employer] Sexual orientation: Straight/Heterosexual Gender identity: Female Cognitive needs: No Hearing needs: No Vision needs: Yes Physical Exam Vital Signs: Last Vital Signs Temp 98.3 F 06/14/23 08:14 Pulse 74 06/14/23 08:14 BP 142/84 H 06/14/23 08:14 Pulse Ox 97 06/14/23 08:14 Oxygen Delivery Method Room Air 06/14/23 08:14 BMI result Body Mass Index 36.3 Const General: cooperative and healthy appearing Nutritional Appearance: well nourished Orientation/consciousness: patient oriented x3 Limitations: no limitations HEENT Head: Yes normal to inspection Eyes General: appearance normal, both eyes and all related structures Neck Neck: Yes normal visual inspection Chest Chest palpation & inspection: normal palpation of entire chest wall Resp Effort & Inspection: normal respiratory effort Neuro General: patient oriented x3 Assessment & Plan Assessment & Plan (1) Upper respiratory tract infection: Code(s): J06.9 - Acute upper respiratory infection, unspecified Plan: Antibiotics ordered. Increase fluid intake. Tylenol for aches and pains. If symptoms worsen, follow-up here for a recheck. Coding Level of Care Code Est Pt Level 3 (85253) Diagnoses Upper respiratory tract infection J06.9
[2023-06-14 08:14] VITALS: BP 142/84; PULSE 74; TEMP 36.8; O2SAT 97; BMI 36.3
== END 2023-06-14 09:00 | disposition home or self-care (01) ==
PROVIDERS: PCP Internal Medicine; Visit Provider Internal Medicine
DX: J06.9 Acute upper respiratory infection, unspecified (principal)
CPT/HCPCS: 99213

== ENCOUNTER 2023-08-31 06:01 | Outpatient (REF) | payer BC, SELFPAY ==
[2023-08-31 10:15] LABS: MANUAL DIFF FLAG NO
[2023-08-31 10:31] LABS: Basophils Absolute Auto 0.1 X10*3/uL (0.0-0.2); Basophils Percent Auto 0.9 % (0-2); Eosinophils Absolute Auto 0.1 X10*3/uL (0.0-0.4); Eosinophils Percent Auto 1.4 % (0-4); Hematocrit 44.3 % (37.0-47.0); Hemoglobin 14.3 g/dl (12.0-16.0); Imm Gran Abs Auto 0.02 X10*3/uL (0.00-0.03); Imm Gran Pct Auto 0.3 % (0.0-0.4); Lymphocytes Absolute Auto 2.6 X10*3/uL (1.2-4.9); Lymphocytes Percent Auto 37.2 % (20-40); Mean Corpuscular HGB Conc 32.3 g/dl (31.0-35.0); Mean Corpuscular Hemoglobin 28.7 pg (27.0-33.0); Mean Corpuscular Volume 88.8 fL (80.0-98.0); Mean Platelet Volume 13.6 fL (9.4-12.3); Monocytes Absolute Auto 0.5 X10*3/uL (0.1-1.2); Monocytes Percent Auto 7.6 % (2-11); Neutrophils Absolute Auto 3.7 x10*3/uL (2.0-8.3); Neutrophils Percent Auto 52.6 % (45-73); Platelet Count 178 X10*3/uL (160-400); Red Blood Count 4.99 X10*6/uL (4.20-5.50); Red Cell Distribution Width 13.2 % (11.0-16.0); White Blood Count 6.9 X10*3/uL (4.8-10.8)
[2023-08-31 10:56] LABS: Estimated Average Glucose 108 mg/dL; Hemoglobin A1c % 5.4 % (<6.0)
[2023-08-31 10:58] LABS: Alanine Aminotransferase 19 U/L (0-31); Albumin Level 4.1 g/dL (3.5-5.0); Alkaline Phosphatase 70 U/L (39-117); Anion Gap 14 (12-20); Aspartate Amino Transferase 20 U/L (5-31); Bilirubin Total 0.4 mg/dL (0.0-1.0); Blood Urea Nitrogen 15 mg/dL (9-16); Calcium 9.6 mg/dL (8.4-10.2); Carbon Dioxide 26 mmol/L (22-29); Chloride 106 mmol/L (96-108); Cholesterol 213 mg/dL (<200); Estimated Glomerular Filt Rate > 60; Glucose Random 91 mg/dL (60-115); HDL Cholesterol 70 mg/dL (>40); LDL Cholesterol Calculated 126 mg/dL (<100); Potassium 4.3 mmol/L (3.3-5.1); Sodium 142 mmol/L (135-145); Total Protein 7.5 g/dL (6.5-8.0); Triglycerides 87 mg/dL (<150)
== END 2023-08-31 06:02 | disposition home or self-care (01) ==
LOC: HO.HMGCLDS 06:01
PROVIDERS: PCP Internal Medicine; Visit Provider Internal Medicine
DX: I10 Essential (primary) hypertension (principal); E78.5 Hyperlipidemia, unspecified; J44.9 Chronic obstructive pulmonary disease, unspecified
CPT/HCPCS: 36415; 80053; 80061; 83036; 84443; 85025

== ENCOUNTER 2023-09-02 13:54 | Outpatient (AMB) | payer BC, SELFPAY ==
[2023-09-02 14:35] VITALS: BP 124/76; PULSE 85; O2SAT 96; BMI 36.1
--- NOTE | 2023-09-02 14:35 | A.OFFPC_ITS ---
Vital Signs 09/02/23 14:35 Height 5 ft 3 in Weight 204 lb BMI 36.1 BP 124/76 Blood Pressure Location Lt brachial Position Sitting Pulse 85 Pulse Source Pulse Oximeter Pulse Oximetry (%) 96 Oxygen Delivery Method Room Air Intake Visit Reasons: PE Intake Note: Pt is here today for a PE. Allergies homatropine [From Hycodan (with homatropine)] Allergy (Severe, Verified 09/02/23 14:37) SOB hydrocodone [From Hycodan (with homatropine)] Allergy (Severe, Verified 09/02/23 14:37) SOB Medication List - Last Reconciled 09/02/23 by Tati Martinez MD albuterol sulfate 0.63 mg (3 mL) inhalation QID PRN nebulizers (AeroEclipse II Nebulizer) As directed olmesartan 20 mg PO DAILY Tobacco use date assessed: 09/02/23 Dental Screening Dental Screen Date: 09/02/23 Did you have a dental visit in the last 12 months?: Yes Did you have a dental problem in the last 6 months where you did not have access to dental care?: No Was dental information given to patient?: Patient has dentist HPI PE HPI Details Patient presents for physical. Hypertension is controlled on olmesartan. [facility] Medical History Allergic rhinitis Cough Tobacco dependence Sinusitis HTN (hypertension) Annual physical exam No pertinent past medical history Surgical History History of appendectomy No pertinent past surgical history Family History Father No problems noted. 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 1. Little interest or pleasure in doing things: not at all 2. Feeling down, depressed, or hopeless: not at all 3. Trouble falling or staying asleep, or sleeping too much: not at all 4. Feeling tired or having little energy: not at all 5. Poor appetite or overeating: not at all 6. Feeling bad about yourself - or that you are a failure or have let yourself or your family down: not at all 7. Trouble concentrating on things, such as reading the newspaper or watching television: not at all 8. Moving or speaking so slowly that other people could have noticed. Or the opposite - being so fidgety or restless that you have been moving around a lot more than usual: not at all 9. Thoughts that you would be better off or of hurting yourself in some way: not at all Total score: 0 Depression Screening Interpretation: Negative Depression Screening Done: Yes Source: Developed by Drs. Delfino Rm, Rajni Briceño, Fahad Crawford and colleagues, with an educational peter from [employer]. Thrive Questionnaire Date Thrive assessed: 09/02/23 I am a: Patient What is your living situation today?: I have a steady place to live Within the past 12 months, did the food you bought not last and you didn't have the money to get more?: Never true Within the past 12 months, did you worry whether your food would run out before you got money to buy more?: Never true Do you have trouble paying for medicines?: No Do you have trouble getting transportation to medical appointments?: No Do you have trouble paying your heating and electricity bill?: No Do you have trouble taking care of your child, family member or friend?: No Do you have trouble with day-to-day activities such as bathing, preparing meals, shopping, managing finances, etc.?: No Are you currently unemployed and looking for a job?: No Are you interested in more education?: No Please select the resources that you would like help with: None THRIVE Score: 0 AUDIT C Alcohol Use Questionnaire (AUDIT-C) 1. How often do you have a drink containing alcohol?: Never 3. How often do you have six or more drinks on one occasion?: Never Total Score: 0 CRISTINA-7 AMB Questionnaire CRISTINA-7 Date CRISTINA - 7 assessed: 09/02/23 Feeling nervous, anxious, or on edge: 0 = Not at all Not being able to stop or control worryin = Not at all Worrying too much about different things: 0 = Not at all Trouble relaxin = Not at all Being so restless that it is hard to sit still: 0 = Not at all Becoming easily annoyed or irritable: 0 = Not at all Feeling afraid as if something awful might happen: 0 = Not at all Total CRISTINA-7 score (0-4 normal; 5-9 mild; 10-14 moderate; 15-21 severe): 0 Source: Developed by Drs. Delfino Rm, Rajni Briceño, Fahad Crawford and colleagues, with an educational peter from [employer]. Review of Systems Const All systems reviewed & are unremarkable except as noted in HPI and below Reports no additional complaints Eyes Reports no additional complaints ENT Reports no additional complaints Card Reports no additional complaints Resp Reports no additional complaints GI Reports no additional complaints Reports no additional complaints Physical exam (Primary Care) Vital Signs: Last Vital Signs Pulse 85 09/02/23 14:35 BP 124/76 09/02/23 14:35 Pulse Ox 96 09/02/23 14:35 Oxygen Delivery Method Room Air 09/02/23 14:35 BMI result Body Mass Index 36.1 Tobacco/Smoking Status: Tobacco use Status Tobacco use date assessed 09/02/23 09/02/23 14:39 Patient Tobacco Use Status Current everyday Tobacco (2 09/02/23 14:39 a week) Tobacco use type 04/22/22 13:25 e-Cigarette/Vaping Use Never Used 09/02/23 14:39 PHQ-9: PHQ-9 Score PHQ-9: Total score 0 09/02/23 14:41 Depression Screening Interpretation: Negative Thrive Assessment: Date of Thrive Assessment Date Thrive assessed 09/02/23 09/02/23 14:41 Const General: no acute distress HENMT Head: Yes normal to inspection Face and sinus: Yes normal facial exam Mouth: Normal oral and palatal mucosa present Teeth and gingiva: dentition normal Eyes General: appearance normal, both eyes and all related structures Neck Neck: Yes no lymphadenopathy and Yes supple Resp Effort & Inspection: normal respiratory effort Auscultation: clear to auscultation bilaterally Cardio Rhythm: regular rhythm Heart sounds: S1 normal heart sound present and S2 normal heart sound present GI Inspection: Yes normal to inspection Palpation (GI): Soft to palpation Percussion: Yes normal to percussion Auscultation: normal bowel sounds Assessment and Plan Assessment & Plan (1) COPD (chronic obstructive pulmonary disease): Comment: Spirometry moderate obstruction 06/03, Pt declined inhalers Code(s): J44.9 - Chronic obstructive pulmonary disease, unspecified Plan: Tobacco quitting discussed with the patient. (2) HTN (hypertension): Code(s): I10 - Essential (primary) hypertension Plan: Continue olmesartan (3) Annual physical exam: Comment: Mammogram [facility] 2023, colonoscopy [facility] normal 2018 Code(s): Z00.00 - Encounter for general adult medical examination without abnormal findings Plan: Well-balanced diet regular exercise discussed with the patient she is up-to-date with mammogram colonoscopy and Pap smear by senior quantity surveyor Orders: Orders Lipid Panel 1 Year I10 - Essential (primary) hypertension, Z00.00 - Encounter for general adult medical examination without abnormal findings TSH reflex Free T4 1 Year I10 - Essential (primary) hypertension, Z00.00 - Encounter for general adult medical examination without abnormal findings Comprehensive [place]. Panel Fast 1 Year I10 - Essential (primary) hypertension, Z00.00 - Encounter for general adult medical examination without abnormal fi ndings Complete Blood Count Auto Diff 1 Year I10 - Essential (primary) hypertension, Z00.00 - Encounter for general adult medical examination without abnormal findings Vitamin D 25-OH (D2 and D3) 1 Year I10 - Essential (primary) hypertension, Z00.00 - Encounter for general adult medical examination without abnormal findings Medications: Refilled olmesartan 20 mg PO DAILY 90 tabs 3RF Coding Level of Care Code Est Pt Prev Care 40-64y(35237) Diagnoses COPD (chronic obstructive pulmonary disease) J44.9 HTN (hypertension) I10 Annual physical exam Z00.00
== END 2023-09-02 15:07 | disposition home or self-care (01) ==
PROVIDERS: Visit Provider Internal Medicine
DX: J44.9 Chronic obstructive pulmonary disease, unspecified (principal); I10 Essential (primary) hypertension; Z00.00 Encounter for general adult medical examination without abnormal findings
CPT/HCPCS: 99396

== ENCOUNTER 2024-03-27 07:59 | Outpatient (AMB) | payer BC, SELFPAY ==
[2024-03-27 08:08] VITALS: BP 130/80; PULSE 72; TEMP 36.8; O2SAT 95
--- NOTE | 2024-03-27 08:08 | MHC.OFFWIV ---
Intake Vital Signs 03/27/24 08:08 Weight 211 lb BP 130/80 Blood Pressure Location Rt brachial Position Sitting Pulse 72 Pulse Source Pulse Oximeter Temp 98.2 F Temp Source Oral Pulse Oximetry (%) 95 Oxygen Delivery Method Room Air Intake Visit Reasons: EP vomiting 2 days Intake Note: Patient here for diarrhea and vomiting for about 2 days now and has not been able to hold any food or liquids down. Patient Tobacco Use Status: Current everyday Tobacco user (2 a week) Allergies homatropine [From Hycodan (with homatropine)] Allergy (Severe, Verified 03/27/24 08:16) SOB hydrocodone [From Hycodan (with homatropine)] Allergy (Severe, Verified 03/27/24 08:16) SOB Do you need a note to return to daycare/school/sports/work: No HPI EP vomiting 2 days HPI Details 58 year old female patient presents today with c/o vomiting and diarrhea x2 days. and granddaughter have similar illness. She denies any fever, abdominal pain, or blood in emesis or stool. No dizziness. Voiding normal. She has taken Advil. Denies any cough or respiratory symptoms. Has been tolerating small sips of water at home. Has missed work x2 days. [facility] Medical History Allergic rhinitis Cough Tobacco dependence Sinusitis HTN (hypertension) Annual physical exam No pertinent past medical history Surgical History History of appendectomy No pertinent past surgical history Family History Father No problems noted. 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 Sexual orientation: Straight/Heterosexual Gender identity: Female Cognitive needs: No Hearing needs: No Vision needs: Yes Review of Systems Const All systems reviewed & are unremarkable except as noted in HPI and below Physical Exam Vital Signs: Last Vital Signs Temp 98.2 F 03/27/24 08:08 Pulse 72 03/27/24 08:08 BP 130/80 03/27/24 08:08 Pulse Ox 95 03/27/24 08:08 Oxygen Delivery Method Room Air 03/27/24 08:08 Const General: cooperative and no acute distress Nutritional Appearance: average body habitus Limitations: no limitations HEENT Head: Yes normal to inspection Ears: hearing grossly normal bilaterally Mouth: Normal oral and palatal mucosa present Throat: Yes posterior oropharynx normal Neck Neck: Yes no lymphadenopathy Resp Effort & Inspection: normal respiratory effort Auscultation: clear to auscultation bilaterally Cardio Rate: regular rate Rhythm: regular rhythm GI Inspection: Yes normal to inspection Palpation (GI): Soft to palpation (nontender) and No hepatosplenomegaly present Auscultation: normal bowel sounds Skin General skin exam: no rashes or lesions noted Extrem General: Yes capillary refill normal and Yes no clubbing, cyanosis or edema Psych Appearance: grossly normal Mental Status: mental status grossly normal Speech and movement: Normal speech and movement present Assessment & Plan Assessment & Plan (1) Vomiting and diarrhea: Code(s): R11.10 - Vomiting, unspecified; R19.7 - Diarrhea, unspecified Plan: Symptoms consistent with viral GI illness. Advised conservative measures with bland diet and hydration. Zofran prescribed and d/w patient indications, use, possible s/e. Advised to return to clinic if symptoms do not improve with time and conservative measures, or if she develops any worsening symptoms, fever, or abd, pain. Cov/Flu/RSV swab obtained. Patient agrees to plan. Orders: Orders SARS-CoV2/FLU/RSV Today J06.9 - Acute upper respiratory infection, unspecified, R11.10 - Vomiting, unspecified, R19.7 - Diarrhea, unspecified Medications: New ondansetron HCl 4 mg PO Q8H 3 days PRN 12 tabs 0RF nausea and vomiting R11.10 - Vomiting, unspecified, R19.7 - Diarrhea, unspecified Coding Level of Care Code Est Pt Level 4 (48606) Diagnoses Vomiting and diarrhea R11.10; R19.7
== END 2024-03-27 09:05 | disposition home or self-care (01) ==
PROVIDERS: PCP Internal Medicine; Visit Provider Nurse Practitioner Family
DX: R11.10 Vomiting, unspecified (principal); R19.7 Diarrhea, unspecified

== ENCOUNTER → 2024-03-27 07:59 | Outpatient (BNVA) | payer BC, SELFPAY | PROVIDERS: PCP Internal Medicine; Visit Provider Nurse Practitioner Family ==

== ENCOUNTER 2024-03-27 10:08 | Outpatient (REF) | payer BC, SELFPAY ==
[2024-03-27 12:21] LABS: Influenza A PCR NEGATIVE (Negative); Influenza B PCR NEGATIVE (Negative); Resp Syncy Virus RNA Qual PCR NEGATIVE (Negative); SARS COV2 PCR INHOUSE NEGATIVE (Negative)
== END 2024-03-27 10:09 | disposition home or self-care (01) ==
LOC: HO.LNP 10:08
PROVIDERS: Visit Provider Nurse Practitioner Family
DX: J06.9 Acute upper respiratory infection, unspecified (principal); R11.10 Vomiting, unspecified; R19.7 Diarrhea, unspecified
CPT/HCPCS: 0241U

== ENCOUNTER 2024-05-16 13:32 | Outpatient (AMB) | payer BC, SELFPAY ==
--- NOTE | 2024-05-16 13:50 | A.OFFVIS_ITS ---
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 She is doing well with no band teacher concerns. Currently not sexually active. Denies any vaginal dryness or irritation. STI testing offered; she accepts. Attempting to eat a healthy diet with calcium and vitamin D and stays active with exercise-walks. Last pap smear; 2022. Last mammogram; 2023. Colonoscopy date unknown, completed at [facility]. Denies any family history of breast, ovarian or colon cancer. [facility] Medical History Allergic rhinitis Cough Tobacco dependence Sinusitis HTN (hypertension) Annual physical exam No pertinent past medical history Surgical History History of appendectomy No pertinent past surgical history Family History Father No problems noted. 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[employer] Sexual orientation: Straight/Heterosexual Gender identity: Female Cognitive needs: No Hearing needs: No Vision needs: Yes Female Reproductive History Menstrual Total pregnancies: 2 Full term: 2 Number of Living Children: 2 Date of last pap smear: 05/07/22 (neg pap and hpv) Date of Mammogram: 01/02/24 ([facility] 2) Review of Systems Const All systems reviewed & are unremarkable except as noted in HPI and below Reports as per HPI Eyes Reports no additional complaints ENT Reports no additional complaints Card Reports no additional complaints Resp Reports no additional complaints GI Reports as per HPI and Reports no additional complaints Reports as per HPI Musc Reports no additional complaints Skin/Breast Reports as per HPI Neuro Reports no additional complaints Psych Reports no additional complaints Endo Reports no additional complaints Hari/Lymph Reports no additional complaints Aller/Immun Reports no additional complaints Physical Exam Vital Signs: Last Vital Signs BP 124/82 05/16/24 13:51 BMI result Body Mass Index 38.1 Const General: cooperative, healthy appearing, no acute distress, well developed and alert Orientation/consciousness: patient oriented x3 HEENT Head: Yes normal to inspection Eyes General: appearance normal, both eyes and all related structures Neck Neck: Yes normal visual inspection Thyroid: Thyroid normal Chest Chest palpation & inspection: normal inspection of the chest and other (no puckering, dimpling, peau de orange, retraction, discharge, masses) Breast/axilla inspection: normal inspection of the breasts Breast/axilla palpation: normal palpation of the breasts Resp Effort & Inspection: normal respiratory effort GI Inspection: Yes normal to inspection Palpation (GI): Soft to palpation Rectal Exam - Female: deferred General: Yes bladder normal to palpation External Female Exam: normal external appearance and normal appearance of the urethra Speculum Exam - Vagina: normal appearance of the vagina, normal palpation, normal vaginal discharge and vagina atrophic Speculum Exam - Cervix: normal appearance of the cervix and normal palpation Bimanual exam- vagina & uterus: normal bimanual exam, normal palpation, uterine size normal, bladder normal to palpation, normal palpation and non-tender Bimanual Exam- Adnexa, other: no masses Skin General skin exam: no rashes or lesions noted Rashes: no rashes Neuro General: patient oriented x3 Cognition (Neuro): normal cognition Extrem General: Yes normal to inspection Psych Attitude: cooperative Thought process: Normal thought process present Assessment & Plan Assessment & Plan (1) Encounter for well woman exam with routine gynecological exam: Code(s): Z01.419 - Encounter for gynecological examination (general) (routine) without abnormal findings Category: Medical Plan Discussed: Current recommendations for pap smears per ASCCP guidelines. Breast awareness, periodic self breast exams and yearly mammogram. Maintain a healthy lifestyle, well balanced diet including Calcium 1,200 mg and Vitamin D 600 IU daily, and routine exercise. Contact the office with any postmenopausal bleeding. Patient verbalizes understanding and agrees to the plan of care. She was given opportunity to ask questions and all questions were answered to the best of my ability. RTO in 1 year for annual band teacher exam. This note is constructed using voice recognition software. While every effort has been made to ensure accuracy, special effects artist errors may have been included. Coding Level of Care Code Est Pt Prev Care 40-64y(04170) Diagnoses Encounter for well woman exam with routine gynecological exam Z01.419
[2024-05-16 13:51] VITALS: BP 124/82; BMI 38.1
--- OUTSIDE RECORDS SUMMARY | 2024-05-16 14:58 | XMS_ITS | Clinical Summary ---
Author Organization [facility] Address [address] [place] [address] Care Team Providers Care Marine Designer Name Role Phone Tenisha Raman DO Primary Care Pro vider Surgical History Surgery Date Site/Laterality Comments APPENDECTOMY PROCEDURE: HISTORICAL APPENDECTOMY COLONOSCOPY 07/09/2016 PROCEDURE: HISTORICAL COLONOSCOPY; COMMENT: Negative screening examination, minimal diverticulosis. BREAST BIOPSY PROCEDURE: BX BREAST; PERC NEEDLE CORE W/IMAG GUID; COMMENT: ? side pt states over 10 yrs ago Medical History Medical History Date Comments Smoking DX:Smoking Vitamin D deficiency DX:Vitamin D deficiency Family History Medical History Relation Name Comments Hyperthyroidism Daughter Cerebral aneurysm Mother may have b een bleed related to fall Breast cancer Neg Hx Colon cancer Neg Hx Ovarian cancer Neg Hx Relation Name Status Comments Daughter Father Mother Social History Tobacco Use Types Packs/Day Years Used Date Smoking Tobacco: Former Smokeless Tobacco: Never Alcohol Use Standard Drinks/Week Comments No 0 (1 standard drink = 0.6 oz pur e alcohol) Sex and Gender Information Value Date Recorded Sex Assigned at Not on file Gender Identity Not on file Sexual Orientation Not on file Obstetrics History Plan of Treatment Upcoming Encounters Date Type Department Care Team (Late st Contact Info) Description 01/12/2025 9:30 AM EDT Appointment Radiology Department - [address] [phone] Health Maintenance Due Date Last Done Comments DTaP,Tdap,and Td Vaccines (1 - Tdap) 08/21/1983 Hepatitis B Vaccines (1 of 3 - 19+ 3-dose series) 08/21/1983 Cervical Cancer Screening: Pap Smear 1985 Zoster Vaccines (1 of 2) 2014 Cholesterol Screening (Lipid Panel) 03/20/2022 Colorectal Cancer Screening: Colonoscopy 03/20/2022 Depression Screening 03/20/2022 HIV Screening 03/20/2022 Hepatitis C Screening 03/20/2022 Social Influencers of Health Screening 03/20/2022 COVID-19 Vaccine ( - season) 2023 Influenza Vaccine (#1) 2023 Breast Cancer Screening 01/01/2026 01/02/20 24, 01/24/2023, 12/24/2022, Additional history exists RSV Immunization Patients 60+ Years Old (1 - 1-dose 75+ series) 08/21/2039 HIB Vaccines Aged Out No longer eligi ble based on patient's age to complete this topic HPV Vaccines Aged Out No longer eligi ble based on patient's age to complete this topic Hepatitis A Vaccines Aged Out No long er eligible based on patient's age to complete this topic IPV Vaccines Aged Out No longer eligi ble based on patient's age to complete this topic MMR Vaccines Aged Out No longer eligi ble based on patient's age to complete this topic Meningococcal ACWY Vaccine Aged Out N o longer eligible based on patient's age to complete this topic Pneumococcal Vaccine: Pediatrics (0 to 5 Years) and At-Risk Patients (6 to 64 Years) Aged Out No longer eligible based on patient's age to complete this topic RSV Immunization Patients Under 20 months Aged Out No longer eligible based on patient's age to complete this topic Varicella Vaccines Aged Out No longer eligible based on patient's age to complete this topic Procedures Procedure Name Priority Date/Time Associated Diagnosis Comments SCREENING MAMMOGRAPHY BI 2-VIEW BREAST INC CAD Routine 01/02/2024 7:35 AM EDT Encounter for screening mammogram for malignant neoplasm of breast from Last 3 Months or Most Recently Relevant to Health Maintenance Results * SCREENING MAMMOGRAPHY BI 2-VIEW BREAST INC CAD (01/02/2024 7:35 AM EDT) Anatomical Region Laterality Modality Radiographic Imani ging 12/24/2022 4:17 PM EDT Narrative 01/04/2024 8:58 AM EDT This is a summary report. The complete report is available in the patient's medical record. If you cannot access the medical record, please contact the sending organization for a detailed fax or copy. BILATERAL 3D DIGITAL SCREENING MAMMOGRAM History: Routine screening. ??No current breast complaints. ?? Comparison: Multiple priors dating back to 12/11/2019 Technique: Bilateral full-field digital 3D mammography was performed using standard CC and MLO projections, right breast exaggerated CC CAD was used to evaluate this mammogram. Findings: Density: ?? The breasts are heterogeneously dense which may obscure small masses-C RIGHT: No suspicious masses, groups of microcalcification or areas of architectural distortion identified. Stable typically benign parenchymal asymmetries. ??CC view lateral middle depth asymmetry was previously worked up and found to be benign. LEFT: No suspicious masses, groups of microcalcifications or areas of architectural distortion identified. Stable typically benign parenchymal asymmetries IMPRESSION: : 1. ??No mammographic evidence of malignancy. BI-RADS Category 2 benign findings Recommendation: Routine annual screening mammography is recommended [address] [id number] Procedure Note Margaret Chiang MD - 03/05/2024 This is a summary report. The complete report is available in thepatient's medical record. If you cannot access the medical record, pleasecontact the sending organization for a detailed fax or copy. BILATERAL 3D DIGITAL SCREENING MAMMOGRAM History: Routine screening. No current breast complaints. Comparison: Multiple priors dating back to 12/11/2019 Technique: Bilateral full-field digital 3D mammography was performed usingstandard CC and MLO projections, right breast exaggerated CC CAD was used to evaluate this mammogram. Findings: Density: The breasts are heterogeneously dense which may obscure smallmasses-C RIGHT: No suspicious masses, groups of microcalcification or areas ofarchitectural distortion identified. Stable typically benign parenchymalasymmetries. CC view lateral middle depth asymmetry was previously workedup and found to be benign. LEFT: No suspicious masses, groups of microcalcifications or areas ofarchitectural distortion identified. Stable typically benign parenchymalasymmetries IMPRESSION: : 1. No mammographic evidence of malignancy. BI-RADS Category 2 benign findings Recommendation: Routine annual screening mammography is recommended [address] [id number] Tati Martinez MD IMG XR PROCEDURES from Last 3 Months or Most Recently Relevant to Health Maintenance Care Teams Marine Designer Relationship Specialty Start Date End Date Tenisha Raman DO PCP - General Internal Medicine 06/12/13
== END 2024-05-16 14:25 | disposition home or self-care (01) ==
LOC: HO.HWS 13:32
PROVIDERS: PCP Internal Medicine; Visit Provider Advanced Practice Midwife
DX: Z01.419 Encounter for gynecological examination (general) (routine) without abnormal findings (principal)
CPT/HCPCS: 99396; 99459

== ENCOUNTER → 2024-05-16 13:32 | Outpatient (BNVA) | payer BC, SELFPAY | PROVIDERS: PCP Internal Medicine; Visit Provider Advanced Practice Midwife ==

== ENCOUNTER 2024-06-11 14:14 | Outpatient (AMB) | payer BC, SELFPAY ==
--- NOTE | 2024-06-11 14:24 | A.OFFPC_ITS ---
Vital Signs 06/11/24 14:25 Height 5 ft 3 in Weight 210 lb BMI 37.2 BP 126/78 Blood Pressure Location Lt brachial Position Sitting Respiration 20 Pulse 86 Pulse Source Pulse Oximeter Temp 98.3 F Temp Source Oral Pulse Oximetry (%) 96 Oxygen Delivery Method Room Air Intake Visit Reasons: Grief Intake Note: Pt is here today for a sick visit. Pt states that her last week.Pt states that she has been also sick having body aches, cough. Allergies homatropine [From Hycodan (with homatropine)] Allergy (Severe, Verified 06/11/24 14:25) SOB hydrocodone [From Hycodan (with homatropine)] Allergy (Severe, Verified 06/11/24 14:25) SOB Medication List - Last Reconciled 06/11/24 by Tati Martinez MD nebulizers (AeroEclipse II Nebulizer) As directed olmesartan 20 mg PO DAILY Tobacco use date assessed: 06/11/24 Dental Screening Dental Screen Date: 06/11/24 Did you have a dental visit in the last 12 months?: Yes Did you have a dental problem in the last 6 months where you did not have access to dental care?: No Was dental information given to patient?: Patient has dentist HPI Grief HPI Details Patient's suddenly 2 weeks ago at home. She has been crying and complains of insomnia and decreased appetite. is this week. Patient is not able to concentrate on daily activities or work. She denies suicide ideation. Her daughter is coming from [place] for tomorrow. Patient reports increase coughing wheezing and has been smoking over a pack a day for the last few days. She denies fever or chills sputum production [facility] Medical History Allergic rhinitis Cough Tobacco dependence Sinusitis HTN (hypertension) Annual physical exam No pertinent past medical history Surgical History History of appendectomy No pertinent past surgical history Family History Father No problems noted. 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 1. Little interest or pleasure in doing things: not at all 2. Feeling down, depressed, or hopeless: several days 3. Trouble falling or staying asleep, or sleeping too much: not at all 4. Feeling tired or having little energy: not at all 5. Poor appetite or overeating: several days 6. Feeling bad about yourself - or that you are a failure or have let yourself or your family down: several days 7. Trouble concentrating on things, such as reading the newspaper or watching television: several days 8. Moving or speaking so slowly that other people could have noticed. Or the opposite - being so fidgety or restless that you have been moving around a lot more than usual: several days 9. Thoughts that you would be better off or of hurting yourself in some way: several days Total score: 6 Depression Screening Interpretation: Negative Depression Screening Done: Yes 45769 - PHQ-9 Billing: Yes Source: Developed by Drs. Delfino Rm, Rajni Briceño, Fahad Crawford and colleagues, with an educational peter from [email or web address]. Thrive Questionnaire Date Thrive assessed: 06/11/24 I am a: Patient What is your living situation today?: I choose not to answer this question Within the past 12 months, did the food you bought not last and you didn't have the money to get more?: I choose not to answer this question Within the past 12 months, did you worry whether your food would run out before you got money to buy more?: I choose not to answer this question Do you have trouble paying for medicines?: I choose not to answer this question Do you have trouble getting transportation to medical appointments?: No Do you have trouble paying your heating and electricity bill?: No Do you have trouble taking care of your child, family member or friend?: No Do you have trouble with day-to-day activities such as bathing, preparing meals, shopping, managing finances, etc.?: I choose not to answer this question Are you currently unemployed and looking for a job?: No Are you interested in more education?: No Please select the resources that you would like help with: None Currently or been in a relationship where the following occur: I choose not to answer THRIVE Score: 0 AUDIT C Alcohol Use Questionnaire (AUDIT-C) 1. How often do you have a drink containing alcohol?: Never Total Score: 0 CRISTINA-7 AMB Questionnaire CRISTINA-7 Date CRISTINA - 7 assessed: 06/11/24 Feeling nervous, anxious, or on edge: 3 = Nearly every day Not being able to stop or control worryin = Not at all Worrying too much about different things: 0 = Not at all Trouble relaxin = Not at all Being so restless that it is hard to sit still: 0 = Not at all Becoming easily annoyed or irritable: 0 = Not at all Feeling afraid as if something awful might happen: 0 = Not at all Total CRISTINA-7 score (0-4 normal; 5-9 mild; 10-14 moderate; 15-21 severe): 3 Source: Developed by Drs. Delfino Rm, Rajni Briceño, Fahad Crawford and colleagues, with an educational peter from [email or web address]. CRISTINA-7 Assessment Billing CRISTINA-7 Assessment Tool: CRISTINA-7 Assessment 90296 Review of Systems Const All systems reviewed & are unremarkable except as noted in HPI and below Eyes Reports no additional complaints ENT Reports no additional complaints Card Reports no additional complaints Resp Reports no additional complaints GI Reports no additional complaints Reports no additional complaints Physical exam (Primary Care) Vital Signs: Last Vital Signs Temp 98.3 F 06/11/24 14:25 Pulse 86 06/11/24 14:25 Resp 20 06/11/24 14:25 BP 126/78 06/11/24 14:25 Pulse Ox 96 06/11/24 14:25 Oxygen Delivery Method Room Air 06/11/24 14:25 BMI result Body Mass Index 37.2 Tobacco/Smoking Status: Tobacco use Status Tobacco use date assessed 06/11/24 06/11/24 14:26 Patient Tobacco Use Status Former Tobacco user (2 a 06/11/24 14:25 week) Tobacco use type 04/22/22 13:25 e-Cigarette/Vaping Use Never Used 06/11/24 14:25 PHQ-9: PHQ-9 Score PHQ-9: Total score 6 06/11/24 14:26 Depression Screening Interpretation: Negative Thrive Assessment: Date of Thrive Assessment Date Thrive assessed 06/11/24 06/11/24 14:26 Currently or been in a relationship where the following occur: I choose not to answer Const General: no acute distress HENMT Head: Yes normal to inspection Resp Effort & Inspection: normal respiratory effort Auscultation: wheezes and diminished lung sounds Cardio Rhythm: regular rhythm Heart sounds: S1 normal heart sound present and S2 normal heart sound present Coding Level of Care Code Est Pt Level 3 (40446) Diagnoses COPD (chronic obstructive pulmonary disease) J44.9 Grieving F43.21 Additional Codes CRISTINA-7 Assessment Billing - CRISTINA-7 Assessment Tool: CRISTINA-7 Assessment 91982 ([id number]) PHQ-9 - 75189 - PHQ-9 Billing: Yes ([id number]) Assessment & Plan Assessment & Plan (1) COPD (chronic obstructive pulmonary disease): Comment: Spirometry moderate obstruction 06/03, Pt declined inhalers Code(s): J44.9 - Chronic obstructive pulmonary disease, unspecified Category: Medical Plan: Restart Anoro and albuterol tobacco quitting recommended (2) Grieving: Code(s): F43.21 - Adjustment disorder with depressed mood Category: Medical Plan: Patient has supportive family members and is not interested in counseling. Lorazepam 0.5 mg up to twice a day 20 tabl is prescribed. Out of work note until June 18 Medications: New lorazepam 0.5 mg PO BID PRN 20 tabs 0RF anxiety Anoro Ellipta 62.5-25 mcg/actuation (umeclidinium-vilanterol) 1 inh inhalation DAILY 60 ea 2RF NS albuterol sulfate 90 mcg/actuation 2 puffs inhalation Q6H PRN 8.5 grams 1RF shortness of breath or wheezing
[2024-06-11 14:25] VITALS: BP 126/78; PULSE 86; RESP 20; TEMP 36.8; O2SAT 96; BMI 37.2
--- OUTSIDE RECORDS SUMMARY | 2024-06-11 17:02 | XMS_ITS | Clinical Summary ---
Author Organization [facility] Address [address] [place] [address] Care Team Providers Care Recreation Aide Name Role Phone Tenisha Raman DO Primary [...] drink = 0.6 oz pur e alcohol) Comments Unknown Sex and Gender Information Value Date Recorded Sex Assigned at Not on file Legal Sex Female 12:32 AM EST Gender Identity Not on file Sexual Orientation Not on file Obstetrics History Plan of Treatment Upcoming Encounters Date Type Department Care Team ([facility] st Contact Info) Description 01/12/2025 9:30 AM EDT Appointment Radiology Department - [address] [id number] Health Maintenance Due Date Last Done Comments DTaP,Tdap,and Td Vaccines (1 - Tdap) 08/21/1983 Hepatitis B Vaccines (1 of 3 - 19+ 3-dose series) 08/21/1983 Cervical Cancer Screening: Pap Smear 1985 Pneumococcal Vaccine: 50+ Years (1 of 1 - PCV) 2014 Zoster Vaccines (1 of 2) 2014 Cholesterol [...] patient's age to complete this topic Meningococcal B Vacine Aged Out No lo nger eligible based on patient's age to complete [...] Recommendation: Routine annual screening mammography is recommended [facility] [address] [place] [id number] Procedure Note Margaret Chiang MD - 03/05/2024 [...] Recommendation: Routine annual screening mammography is recommended [facility] [id number] [place], [place] [id number] Tati Martinez MD IMG XR PROCEDURES Final Result from Last 3 Months or Most Recently Relevant to Health Maintenance Care Teams Recreation Aide Relationship Specialty Start Date End Date Tenisha Raman DO PCP - General Internal Medicine 06/12/13
== END 2024-06-11 15:12 | disposition home or self-care (01) ==
PROVIDERS: PCP Internal Medicine; Visit Provider Internal Medicine
DX: J44.9 Chronic obstructive pulmonary disease, unspecified (principal); F43.21 Adjustment disorder with depressed mood

== ENCOUNTER → 2024-06-11 14:14 | Outpatient (BNVA) | payer BC, SELFPAY | PROVIDERS: PCP Internal Medicine; Visit Provider Internal Medicine | DX: F43.21 Adjustment disorder with depressed mood (principal); J44.9 Chronic obstructive pulmonary disease, unspecified | CPT/HCPCS: 96127 ==

== ENCOUNTER 2024-06-28 10:31 | Outpatient (AMB) | payer BC, SELFPAY ==
[2024-06-28 10:35] VITALS: BP 110/74; PULSE 81; RESP 20; TEMP 36.7; O2SAT 97; BMI 36.7
--- NOTE | 2024-06-28 10:35 | A.OFFPC_ITS ---
Vital Signs 06/28/24 10:35 Height 5 ft 3 in Weight 207 lb BMI 36.7 BP 110/74 Blood Pressure Location Lt brachial Position Sitting Respiration 20 Pulse 81 Pulse Source Pulse Oximeter Temp 98.0 F Temp Source Oral Pulse Oximetry (%) 97 Oxygen Delivery Method Room Air Intake Visit Reasons: upper R leg numbness tingling Intake Note: Pt is here today for a sick visit. Pt c/o R tight numbness, tingling and burning sensation. Allergies homatropine [From Hycodan (with homatropine)] Allergy (Severe, Verified 06/28/24 10:37) SOB hydrocodone [From Hycodan (with homatropine)] Allergy (Severe, Verified 06/28/24 10:37) SOB Medication List - Last Reconciled 06/28/24 by Tati Martinez MD albuterol sulfate 90 mcg/actuation 2 puffs inhalation Q6H PRN Anoro Ellipta 62.5-25 mcg/actuation (umeclidinium-vilanterol) 1 inh inhalation DAILY NS lorazepam 0.5 mg PO BID PRN nebulizers (AeroEclipse II Nebulizer) As directed olmesartan 20 mg PO DAILY sertraline 50 mg PO DAILY Tobacco use date assessed: 06/28/24 Dental Screening Dental Screen Date: 06/28/24 Did you have a dental visit in the last 12 months?: Yes Did you have a dental problem in the last 6 months where you did not have access to dental care?: No Was dental information given to patient?: Patient has dentist HPI upper R leg numbness tingling HPI Details Pt presents c/o R lateral thigh intermittent numbness and tingling sen sation worse in the morning since her . Patient denies any weakness in extremities, lower back pain, change in bowel or bladder function. She is grieving her 's and has difficulty to concentrate on work, insomnia and decreased appetite. Patient denies suicide ideation. [facility] Medical History Allergic rhinitis Cough Tobacco dependence Sinusitis HTN (hypertension) Annual physical exam No pertinent past medical history Surgical History History of appendectomy No pertinent past surgical history Family History Father No problems noted. 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 1. Little interest or pleasure in doing things: not at all 2. Feeling down, depressed, or hopeless: several days 3. Trouble falling or staying asleep, or sleeping too much: not at all 4. Feeling tired or having little energy: not at all 5. Poor appetite or overeating: several days 6. Feeling bad about yourself - or that you are a failure or have let yourself or your family down: several days 7. Trouble concentrating on things, such as reading the newspaper or watching television: several days 8. Moving or speaking so slowly that other people could have noticed. Or the opposite - being so fidgety or restless that you have been moving around a lot more than usual: several days 9. Thoughts that you would be better off or of hurting yourself in some way: several days Total score: 6 Depression Screening Interpretation: Negative Depression Screening Done: Yes 09194 - PHQ-9 Billing: Yes Source: Developed by Drs. Delfino Rm, Rajni Briceño, Fahad Crawford and colleagues, with an educational peter from [employer] Thrive Questionnaire Date Thrive assessed: 06/28/24 I am a: Patient What is your living situation today?: I choose not to answer this question Within the past 12 months, did the food you bought not last and you didn't have the money to get more?: I choose not to answer this question Within the past 12 months, did you worry whether your food would run out before you got money to buy more?: I choose not to answer this question Do you have trouble paying for medicines?: I choose not to answer this question Do you have trouble getting transportation to medical appointments?: No Do you have trouble paying your heating and electricity bill?: No Do you have trouble taking care of your child, family member or friend?: No Do you have trouble with day-to-day activities such as bathing, preparing meals, shopping, managing finances, etc.?: I choose not to answer this question Are you currently unemployed and looking for a job?: No Are you interested in more education?: No Please select the resources that you would like help with: None Currently or been in a relationship where the following occur: I choose not to answer THRIVE Score: 0 CRISTINA-7 AMB Questionnaire CRISTINA-7 Date CRISTINA - 7 assessed: 06/28/24 Feeling nervous, anxious, or on edge: 0 = Not at all Not being able to stop or control worryin = Not at all Worrying too much about different things: 1 = Several days Trouble relaxin = Not at all Being so restless that it is hard to sit still: 0 = Not at all Becoming easily annoyed or irritable: 0 = Not at all Feeling afraid as if something awful might happen: 0 = Not at all Total CRISTINA-7 score (0-4 normal; 5-9 mild; 10-14 moderate; 15-21 severe): 1 Source: Developed by Drs. Delfino Rm, Rajni Briceño, Fahad Crawford and colleagues, with an educational peter from [employer] CRISTINA-7 Assessment Billing CRISTINA-7 Assessment Tool: CRISTINA-7 Assessment 90738 Review of Systems Const All systems reviewed & are unremarkable except as noted in HPI and below Eyes Reports no additional complaints ENT Reports no additional complaints Card Reports no additional complaints Resp Reports no additional complaints GI Reports no additional complaints Reports no additional complaints Physical exam (Primary Care) Vital Signs: Last Vital Signs Temp 98.0 F 06/28/24 10:35 Pulse 81 06/28/24 10:35 Resp 20 06/28/24 10:35 BP 110/74 06/28/24 10:35 Pulse Ox 97 06/28/24 10:35 Oxygen Delivery Method Room Air 06/28/24 10:35 BMI result Body Mass Index 36.7 Tobacco/Smoking Status: Tobacco use Status Tobacco use date assessed 06/28/24 06/28/24 10:42 Patient Tobacco Use Status Former Tobacco user (2 a 06/28/24 10:42 week) Tobacco use type 04/22/22 13:25 e-Cigarette/Vaping Use Never Used 06/28/24 10:42 PHQ-9: PHQ-9 Score PHQ-9: Total score 6 06/28/24 10:42 Depression Screening Interpretation: Negative Thrive Assessment: Date of Thrive Assessment Date Thrive assessed 06/28/24 06/28/24 10:42 Currently or been in a relationship where the following occur: I choose not to answer HENMT Head: Yes normal to inspection Mouth: Normal oral and palatal mucosa present Resp Effort & Inspection: normal respiratory effort Auscultation: clear to auscultation bilaterally Cardio Rhythm: regular rhythm Heart sounds: S1 normal heart sound present and S2 normal heart sound present Back/Spine/Pelvis Other: Full range of motion of lumbar spine, straight leg rising 90 degrees bilaterally, motor strength 5/5 bilaterally, deep tendon reflexes 1+ bilaterally , toe and heel walk intact bilaterally Coding Level of Care Code Est Pt Level 3 (53555) Diagnoses Paresthesia of right leg R20.2 Anxiety and depression F41.9; F32.A Additional Codes CRISTINA-7 Assessment Billing - CRISTINA-7 Assessment Tool: CRISTINA-7 Assessment 11838 ([id number]) PHQ-9 - 08769 - PHQ-9 Billing: Yes ([id number]) Assessment & Plan Assessment & Plan (1) Paresthesia of right leg: Code(s): R20.2 - Paresthesia of skin Category: Medical Plan: Patient will try topical lidocaine cream (2) Anxiety and depression: Code(s): F41.9 - Anxiety disorder, unspecified; F32.A - Depression, unspecified Category: Medical Plan: Stress management discussed with the patient , she will schedule an appointment with a counselor. Sertraline 50 mg will be started and pt will follow-up in 1 month, out of work until July 16 Medications: New sertraline 1/2 tabl qd x 3 days, then 1 tabl 50 mg PO DAILY 90 tabs 1RF
--- OUTSIDE RECORDS SUMMARY | 2024-06-28 12:05 | XMS_ITS | Clinical Summary ---
Author Organization [facility] Address [address] [place] [address] Care Team Providers Care Jukebox Operator Name Role Phone Tenisha Raman DO Primary [...] Upcoming Encounters Date Type Department Care Team ([facility] st Contact Info) Description 01/12/2025 9:30 AM EDT Appointment Radiology Department - [address] [phone] Health Maintenance Due Date Last Done Comments [...] Recommendation: Routine annual screening mammography is recommended [facility] [address] [place] [id number] Procedure Note Margaret Chiang MD - 03/05/2024 [...] Recommendation: Routine annual screening mammography is recommended [facility] [id number] [place], [place] [phone] Tati Martinez MD IMG XR PROCEDURES Final Result from Last 3 Months or Most Recently Relevant to Health Maintenance Care Teams Jukebox Operator Relationship Specialty Start Date End Date Tenisha Raman DO PCP - General Internal Medicine 06/12/13
== END 2024-06-28 11:22 | disposition home or self-care (01) ==
PROVIDERS: PCP Internal Medicine; Visit Provider Internal Medicine
DX: R20.2 Paresthesia of skin (principal); F41.9 Anxiety disorder, unspecified; F32.A Depression, unspecified

== ENCOUNTER → 2024-06-28 10:31 | Outpatient (BNVA) | payer BC, SELFPAY | PROVIDERS: PCP Internal Medicine; Visit Provider Internal Medicine | DX: R20.2 Paresthesia of skin (principal); F41.9 Anxiety disorder, unspecified; F32.A Depression, unspecified | CPT/HCPCS: 96127 ==

== ENCOUNTER 2024-07-31 12:33 | Outpatient (AMB) | payer BC, SELFPAY ==
--- NOTE | 2024-07-31 13:33 | MHC.PC.OV ---
Vital Signs 07/31/24 13:34 Height 5 ft 3 in Weight 210 lb BMI 37.2 BP 118/66 Blood Pressure Location Lt brachial Position Sitting Respiration 18 Pulse 64 Pulse Source Pulse Oximeter Temp 98.0 F Temp Source Oral Pulse Oximetry (%) 96 Oxygen Delivery Method Room Air Intake Visit Reasons: 4weeks f/u Intake Note: Pt is here today for 4 weeks follow up visit. Allergies homatropine [From Hycodan (with homatropine)] Allergy (Severe, Verified 07/31/24 13:40) SOB hydrocodone [From Hycodan (with homatropine)] Allergy (Severe, Verified 07/31/24 13:40) SOB Medication List - Last Reconciled 07/31/24 by Tati Martinez MD albuterol sulfate 90 mcg/actuation 2 puffs inhalation Q6H PRN Anoro Ellipta 62.5-25 mcg/actuation (umeclidinium-vilanterol) 1 inh inhalation DAILY NS lorazepam 0.5 mg PO BID PRN nebulizers (AeroEclipse II Nebulizer) As directed olmesartan 20 mg PO DAILY sertraline 50 mg PO DAILY Tobacco use date assessed: 06/28/24 Dental Screening Dental Screen Date: 06/28/24 HPI 4weeks f/u HPI Details Patient presents for the follow-up of anxiety COPD hypertension stable on current medications PFSH Medical History Allergic rhinitis Cough Tobacco dependence Sinusitis HTN (hypertension) Annual physical exam No pertinent past medical history Surgical History History of appendectomy No pertinent past surgical history Family History Father No problems noted. 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[email or web address] Sexual orientation: Straight/Heterosexual Gender identity: Female Cognitive needs: No Hearing needs: No Vision needs: Yes Questionnaire Thrive Questionnaire Date Thrive assessed: 06/11/24 I am a: Patient What is your living situation today?: I choose not to answer this question Within the past 12 months, did the food you bought not last and you didn't have the money to get more?: I choose not to answer this question Within the past 12 months, did you worry whether your food would run out before you got money to buy more?: I choose not to answer this question Do you have trouble paying for medicines?: I choose not to answer this question Do you have trouble getting transportation to medical appointments?: No Do you have trouble paying your heating and electricity bill?: No Do you have trouble taking care of your child, family member or friend?: No Do you have trouble with day-to-day activities such as bathing, preparing meals, shopping, managing finances, etc.?: I choose not to answer this question Are you currently unemployed and looking for a job?: No Are you interested in more education?: No Please select the resources that you would like help with: None Currently or been in a relationship where the following occur: I choose not to answer THRIVE Score: 0 CRISTINA-7 AMB Questionnaire CRISTINA-7 Date CRISTINA - 7 assessed: 06/28/24 Source: Developed by Drs. Delfino Rm, Rajni Briceño, Fahad Crawford and colleagues, with an educational peter from [employer]. Review of Systems Const All systems reviewed & are unremarkable except as noted in HPI and below ENT Reports no additional complaints Card Reports no additional complaints Resp Reports no additional complaints GI Reports no additional complaints Reports no additional complaints Physical exam (Primary Care) Vital Signs: Last Vital Signs Temp 98.0 F 07/31/24 13:34 Pulse 64 07/31/24 13:34 Resp 18 07/31/24 13:34 BP 118/66 07/31/24 13:34 Pulse Ox 96 07/31/24 13:34 Oxygen Delivery Method Room Air 07/31/24 13:34 BMI result Body Mass Index 37.2 Tobacco/Smoking Status: Tobacco use Status Tobacco use date assessed 06/28/24 07/31/24 13:45 Patient Tobacco Use Status Former Tobacco user (2 a 07/31/24 13:45 week) Tobacco use type 04/22/22 13:25 e-Cigarette/Vaping Use Never Used 07/31/24 13:45 Thrive Assessment: Date of Thrive Assessment Date Thrive assessed 06/11/24 07/31/24 13:45 Currently or been in a relationship where the following occur: I choose not to answer Const General: no acute distress HENMT Head: Yes normal to inspection Neck Neck: Yes supple Resp Effort & Inspection: normal respiratory effort Auscultation: clear to auscultation bilaterally Cardio Rhythm: regular rhythm Heart sounds: S1 normal heart sound present and S2 normal heart sound present Coding Level of Care Code Est Pt Level 4 (21251) Diagnoses Anxiety and depression F41.9; F32.A COPD (chronic obstructive pulmonary disease) J44.9 HTN (hypertension) I10 Assessment & Plan Assessment & Plan (1) Anxiety and depression: Code(s): F41.9 - Anxiety disorder, unspecified; F32.A - Depression, unspecified Category: Medical Plan: Continue sertraline (2) COPD (chronic obstructive pulmonary disease): Comment: Spirometry moderate obstruction 06/03, Pt declined inhalers Code(s): J44.9 - Chronic obstructive pulmonary disease, unspecified Category: Medical Plan: Continue Anoro tobacco quitting discussed (3) HTN (hypertension): Code(s): I10 - Essential (primary) hypertension Category: Medical Plan: Continue olmesartan return for physical in October Medications: Changed From sertraline 1/2 tabl qd x 3 days, then 1 tabl 50 mg PO DAILY 90 tabs 1RF To sertraline 50 mg PO DAILY 90 tabs 3RF Refilled olmesartan 20 mg PO DAILY 90 tabs 3RF
[2024-07-31 13:34] VITALS: BP 118/66; PULSE 64; RESP 18; TEMP 36.7; O2SAT 96; BMI 37.2
--- OUTSIDE RECORDS SUMMARY | 2024-07-31 14:54 | XMS_ITS | Clinical Summary ---
Author Organization [facility] Address [address] [place] [address] Care Team Providers Care Nursery Laborer Name Role Phone Tenisha Raman DO Primary [...] Upcoming Encounters Date Type Department Care Team ([facility] st Contact Info) Description 01/12/2025 9:30 AM EDT Appointment Radiology Department - [address] [phone] Health Maintenance Due Date Last Done Comments [...] Vaccine ( - season) 2023 Influenza Vaccine (Season Ended) 2024 Breast Cancer Screening 01/01/2026 01/02/20 24, 01/24/2023, 12/24/2022, Additional history exists RSV Immunization Adult Patients (1 - 1-dose 75+ series) 08/21/2039 HIB [...] age to complete this topic Meningococcal B Vaccine Aged Out No l onger eligible based on patient's age to complete [...] Recommendation: Routine annual screening mammography is recommended [facility] [address] [place] [id number] Procedure Note Margaret Chiang MD - 03/05/2024 [...] Recommendation: Routine annual screening mammography is recommended [facility] [address] [address] Tati Martinez MD IMG XR PROCEDURES Final Result from Last 3 Months or Most Recently Relevant to Health Maintenance Care Teams Nursery Laborer Relationship Specialty Start Date End Date Tenisha Raman DO PCP - General Internal Medicine 06/12/13
== END 2024-07-31 13:55 | disposition home or self-care (01) ==
LOC: HO.HMCC 12:34
PROVIDERS: PCP Internal Medicine; Visit Provider Internal Medicine
DX: F41.9 Anxiety disorder, unspecified (principal); F32.A Depression, unspecified; J44.9 Chronic obstructive pulmonary disease, unspecified; I10 Essential (primary) hypertension

== ENCOUNTER → 2024-07-31 12:33 | Outpatient (BNVA) | payer BC, SELFPAY | PROVIDERS: PCP Internal Medicine; Visit Provider Internal Medicine ==

== ENCOUNTER 2024-09-29 06:30 | Outpatient (REF) | payer BC, SELFPAY | END 2024-09-29 06:31 | disposition home or self-care (01) | LOC: HO.HMGCLDS 06:30 | PROVIDERS: PCP Internal Medicine; Visit Provider Internal Medicine | DX: Z13.89 Encounter for screening for other disorder (principal) ==

== ENCOUNTER 2024-10-09 11:38 | Outpatient (AMB) | payer BC, SELFPAY ==
[2024-10-09 11:40] VITALS: BP 114/76; PULSE 81; RESP 18; TEMP 36.8; O2SAT 97; BMI 37.7
--- NOTE | 2024-10-09 11:40 | A.OFFPC_ITS ---
Vital Signs 10/09/24 11:40 Height 5 ft 3 in Weight 213 lb BMI 37.7 BP 114/76 Blood Pressure Location Lt brachial Position Sitting Respiration 18 Pulse 81 Pulse Source Pulse Oximeter Temp 98.2 F Temp Source Oral Pulse Oximetry (%) 97 Oxygen Delivery Method Room Air Intake Visit Reasons: PE Intake Note: Pt is here today for PE. Allergies homatropine (From Hycodan (with homatropine)) Allergy (Severe, Verified 10/09/24 11:43) SOB hydrocodone (From Hycodan (with homatropine)) Allergy (Severe, Verified 10/09/24 11:43) SOB Medication List - Last Reconciled 10/09/24 by Tati Martinez MD albuterol sulfate 90 mcg/actuation 2 puffs inhalation Q6H PRN Anoro Ellipta 62.5-25 mcg/actuation (umeclidinium-vilanterol) 1 inh inhalation DAILY NS lorazepam 0.5 mg PO BID PRN nebulizers (AeroEclipse II Nebulizer) As directed olmesartan 20 mg PO DAILY sertraline 50 mg PO DAILY Tobacco use date assessed: 10/09/24 Dental Screening Dental Screen Date: 06/28/24 HPI PE HPI Details Patient presents for physical PFSH Medical History Allergic rhinitis Cough Tobacco dependence Sinusitis HTN (hypertension) Annual physical exam No pertinent past medical history Surgical History History of appendectomy No pertinent past surgical history Family History Father No problems noted. Mother Hypertension Stroke Social History Household Members Other:: Housing: House Alcohol intake: never Patient Tobacco Use Status: Former Tobacco user (2 a week) Cigarettes Per Day: 2 e-Cigarette/Vaping Use: Never Used service: No Current occupational status: employed Current occupation: [employer] Sexual orientation: Straight/Heterosexual Gender identity: Female Cognitive needs: No Hearing needs: No Vision needs: Yes Questionnaire PHQ-9 Over the last 2 weeks, how often have you been bothered by any of the following problems? 1. Little interest or pleasure in doing things: not at all 2. Feeling down, depressed, or hopeless: several days 3. Trouble falling or staying asleep, or sleeping too much: not at all 4. Feeling tired or having little energy: several days 5. Poor appetite or overeating: not at all 6. Feeling bad about yourself - or that you are a failure or have let yourself or your family down: not at all 7. Trouble concentrating on things, such as reading the newspaper or watching television: not at all 8. Moving or speaking so slowly that other people could have noticed. Or the opposite - being so fidgety or restless that you have been moving around a lot more than usual: not at all 9. Thoughts that you would be better off or of hurting yourself in some way: not at all Total score: 2 Depression Screening Interpretation: Negative Depression Screening Done: Yes [address]1901 - PHQ-9 Billing: Yes Source: Developed by Drs. Delfino Rm, Rajni Briceño, Fahad Crawford and colleagues, with an educational peter from [employer]. Thrive Questionnaire Date Thrive assessed: 06/11/24 I am a: Patient What is your living situation today?: I choose not to answer this question Within the past 12 months, did the food you bought not last and you didn't have the money to get more?: I choose not to answer this question Within the past 12 months, did you worry whether your food would run out before you got money to buy more?: I choose not to answer this question Do you have trouble paying for medicines?: I choose not to answer this question Do you have trouble getting transportation to medical appointments?: No Do you have trouble paying your heating and electricity bill?: No Do you have trouble taking care of your child, family member or friend?: No Do you have trouble with day-to-day activities such as bathing, preparing meals, shopping, managing finances, etc.?: I choose not to answer this question Are you currently unemployed and looking for a job?: No Are you interested in more education?: No Please select the resources that you would like help with: None Currently or been in a relationship where the following occur: I choose not to answer THRIVE Score: 0 CRISTINA-7 AMB Questionnaire CRISTINA-7 Date CRISTINA - 7 assessed: 06/28/24 Source: Developed by Drs. Delfino Rm, Rajni Briceño, Fahad Crawford and colleagues, with an educational peter from [employer]. Review of Systems Const All systems reviewed & are unremarkable except as noted in HPI and below Eyes Reports no additional complaints ENT Reports no additional complaints Card Reports no additional complaints Resp Reports no additional complaints GI Reports no additional complaints Reports no additional complaints Physical exam (Primary Care) Vital Signs: Last Vital Signs Temp 98.2 F 10/09/24 11:40 Pulse 81 10/09/24 11:40 Resp 18 10/09/24 11:40 BP 114/76 10/09/24 11:40 Pulse Ox 97 10/09/24 11:40 Oxygen Delivery Method Room Air 10/09/24 11:40 BMI result Body Mass Index 37.7 Tobacco/Smoking Status: Tobacco use Status Tobacco use date assessed 10/09/24 10/09/24 11:44 Patient Tobacco Use Status Former Tobacco user (2 a 10/09/24 11:42 week) Tobacco use type 04/22/22 13:25 e-Cigarette/Vaping Use Never Used 10/09/24 11:42 PHQ-9: PHQ-9 Score PHQ-9: Total score 2 10/09/24 11:48 Depression Screening Interpretation: Negative Thrive Assessment: Date of Thrive Assessment Date Thrive assessed 06/11/24 10/09/24 11:42 Currently or been in a relationship where the following occur: I choose not to answer Const General: no acute distress HENMT Head: Yes normal to inspection Ears: hearing grossly normal bilaterally Face and sinus: Yes normal facial exam Throat: Yes posterior oropharynx normal Neck Neck: Yes no lymphadenopathy and Yes supple Resp Effort & Inspection: normal respiratory effort Auscultation: clear to auscultation bilaterally Cardio Rhythm: regular rhythm Heart sounds: S1 normal heart sound present and S2 normal heart sound present GI Inspection: Yes normal to inspection Palpation (GI): Soft to palpation Percussion: Yes normal to percussion Auscultation: normal bowel sounds Coding Level of Care Code Est Pt Prev Care 40-64y(12455) Diagnoses Annual physical exam Z00.00 Hyperlipidemia E78.5 HTN (hypertension) I10 Vitamin D deficiency E55.9 Tobacco dependence F17.200 Additional Codes PHQ-9 - 00155 - PHQ-9 Billing: Yes ([id number]) Assessment & Plan Assessment & Plan (1) Annual physical exam: Comment: Mammogram [place] 2023, colonoscopy [place] normal 2019 Code(s): Z00.00 - Encounter for general adult medical examination without abnormal findings Category: Medical Plan: Well-balanced diet regular physical activity discussed with the patient. She is up-to-date with the mammogram colonoscopy and Pap by server assistant (2) Hyperlipidemia: Code(s): E78.5 - Hyperlipidemia, unspecified Category: Medical Plan: Continue statin (3) HTN (hypertension): Code(s): I10 - Essential (primary) hypertension Category: Medical Plan: Continue olmesartan (4) Vitamin D deficiency: Code(s): E55.9 - Vitamin D deficiency, unspecified Category: Medical Plan: Continue vitamin D (5) Tobacco dependence: Comment: 04/12 ppd x 20 Code(s): F17.200 - Nicotine dependence, unspecified, uncomplicated Category: Medical Plan: Tobacco quitting discussed with the patient she will try Chantix Orders: Orders Lipid Panel 10/20/24 E55.9 - Vitamin D deficiency, unspecified, E78.5 - Hyp erlipidemia, unspecified, I10 - Essential (primary) hypertension, Z00.00 - Encounter for general adult medical examination without abnormal findings Comprehensive Met. Panel 1 Year E78.5 - Hyperlipidemia, unspecified, I10 - Essential (primary) hypertension Complete Blood Count Auto Diff 1 Year E78.5 - Hyperlipidemia, unspecified, I10 - Essential (primary) hypertension Comprehensive [place]. Panel Fast 10/20/24 E55.9 - Vitamin D deficiency, unspecified, E78.5 - Hyperlipidemia, unspecified, I10 - Essential (primary) hy pertension, Z00.00 - Encounter for general adult medical examination without abnormal findings Complete Blood Count Auto Diff 10/20/24 E55.9 - Vitamin D deficiency, unspecif ied, E78.5 - Hyperlipidemia, unspecified, I10 - Essential (primary) hypertension, Z00.00 - Encounter for general adult medical examination without abnormal findings Vitamin D 25-OH Total 10/20/24 E55.9 - Vitamin D deficiency, unspecified, E78.5 - Hyperlipidemia, unspecified, I10 - Essential (primary) hypertension, Z00.00 - Encounter for general adult medical examination without abnormal findings TSH reflex Free T4 10/20/24 E55.9 - Vitamin D deficiency, unspecified, E78.5 - Hyperlipidemia, unspecified, I10 - Essential (primary) hypertension, Z00.00 - Encounter for general adult medical examination without abnormal findings Lipid Panel 1 Year E78.5 - Hyperlipidemia, unspecified, I10 - Essential (primary) hypertension Medications: New varenicline tartrate (Chantix Starting Month Box) PO PER PKG DIR 53 ea 0RF varenicline tartrate (Chantix Continuing Month Box) 1 mg PO BID 56 tabs 1RF
--- OUTSIDE RECORDS SUMMARY | 2024-10-09 12:52 | XMS_ITS | Patient Health Record ---
Author Organization [facility] Address [address] [place] [address] Care Team Providers Care Residential Worker Name Role Phone Tati Martinez MD Primary Care Provider Lj Gomez Unavailable [phone] Reason For Referral No Information Problems Problem Type SNOMED Code ICD Code Onset Dates Problem Status W/U Status Risk Notes Problem Metatarsalgia (28150530) Metatarsalgia (726.70) Active confirmed Problem Onychomycosis (615018320) Onychomycosis (110.1) Active confirmed Problem Pain in limb (18645340) Pain in Limb (729.5) Active confirmed Problem Peroneal tendonitis (02498135) Peroneal Tendonitis (726.79) Active confirmed Problem Metatarsalgia (finding) (41501315) Plantarflexed Metatarsal (838.04) Active confirmed Plan Of Treatment Pending Test Test Name Order Date X ray : Foot, left 3V 01/29/2013 X ray : Foot, right 3V 01/29/2013 Insurance Providers Payer Name Payer Address Payer Phone Subscriber Number Group Number Insured Name Patient Relationship to Insured Coverage Start Date Coverage End Date [facility] [address] [place] [address] [phone] [id number] Self - patient is the insured
--- OUTSIDE RECORDS SUMMARY | 2024-10-09 12:52 | XMS_ITS | Clinical Summary ---
Author Organization [facility] Address [address] [place] [address] Care Team Providers Care Shower Screen Installer Name Role Phone Tenisha Raman DO Primary [...] Upcoming Encounters Date Type Department Care Team ([facility] st Contact Info) Description 01/12/2025 9:30 AM EDT Appointment Radiology Department - [address] [phone] Health Maintenance Due Date Last Done Comments DTaP,Tdap,and Td Vaccines (1 - Tdap) 08/21/1983 Cervical Cancer Screening: Pap Smear 1985 Pneumococcal Vaccine: 50+ Years (1 of 1 - PCV) 2014 Zoster Vaccines (1 of 2) 2014 Cholesterol Screening (Lipid Panel) 03/20/2022 Colorectal Cancer Screening: Colonoscopy 03/20/2022 Depression Screening 03/20/2022 HIV Screening 03/20/2022 Hepatitis C Screening 03/20/2022 Social Influencers of Health Screening 03/20/2022 COVID-19 Vaccine ( season) 2023 Influenza Vaccine (Season Ended) 2024 [...] patient's age to complete this topic Hepatitis B Vaccines Aged Out No long er eligible [...] distortion identified. Stable typically benign parenchymal asymmetries. CC view lateral middle depth asymmetry was previously worked up and found to be benign. LEFT: No suspicious masses, groups of microcalcifications or areas of architectural distortion identified. Stable typically benign parenchymal asymmetries IMPRESSION: : 1. No mammographic evidence of malignancy. BI-RADS Category 2 benign findings Recommendation: Routine annual screening mammography is recommended [facility] [address] [place] [id number] Procedure Note Margaret Chiang MD - 03/05/2024 [...] Recommendation: Routine annual screening mammography is recommended [facility] [address] [place] [address] Tati Martinez MD IMG XR PROCEDURES Final Result from Last 3 Months or Most Recently Relevant to Health Maintenance Care Teams Shower Screen Installer Relationship Specialty Start Date End Date Tenisha Raman DO PCP - General Internal Medicine 06/12/13
== END 2024-10-09 12:23 | disposition home or self-care (01) ==
LOC: HO.HMCC 11:39
PROVIDERS: PCP Internal Medicine; Visit Provider Internal Medicine
DX: Z00.00 Encounter for general adult medical examination without abnormal findings (principal); E78.5 Hyperlipidemia, unspecified; I10 Essential (primary) hypertension; E55.9 Vitamin D deficiency, unspecified; F17.200 Nicotine dependence, unspecified, uncomplicated

== ENCOUNTER → 2024-10-09 11:38 | Outpatient (BNVA) | payer BC, SELFPAY | PROVIDERS: PCP Internal Medicine; Visit Provider Internal Medicine | DX: Z00.00 Encounter for general adult medical examination without abnormal findings (principal); E78.5 Hyperlipidemia, unspecified; I10 Essential (primary) hypertension; E55.9 Vitamin D deficiency, unspecified; Z87.891 Personal history of nicotine dependence | CPT/HCPCS: 96127 ==

== ENCOUNTER 2024-10-20 06:30 | Outpatient (REF) | payer BC, SELFPAY ==
--- OUTSIDE RECORDS SUMMARY | 2024-10-20 06:32 | XMS_ITS | Clinical Summary ---
Author Organization [facility] [[email or web address]] Address [address] [place] [address] Care Team Providers Care Loading Machine Tool Setter Name Role Phone Tenisha Raman DO Primary [...] Upcoming Encounters Date Type Department Care Team ([facility] st Contact Info) Description 01/12/2025 9:30 AM EDT Appointment Radiology Department - [address] [phone] Health Maintenance Due Date Last Done Comments [...] COVID-19 Vaccine ( season) 2023 Influenza Vaccine (#1) 2024 Breast Cancer Screening 01/01/2026 01/02/20 24, [...] 5 Years) and At-Risk Patients (6 to 49 Years) Aged Out No longer eligible based [...] Recommendation: Routine annual screening mammography is recommended [facility] [address] [place] [address] Procedure Note Margaret Chiang MD - 03/05/2024 [...] Recommendation: Routine annual screening mammography is recommended [facility] [address] [place] [address] Tati Martinez MD IMG XR PROCEDURES Final Result from Last 3 Months or Most Recently Relevant to Health Maintenance Care Teams Loading Machine Tool Setter Relationship Specialty Start Date End Date Tenisha Raman DO PCP - General Internal Medicine 06/12/13
--- OUTSIDE RECORDS SUMMARY | 2024-10-20 06:32 | XMS_ITS | Patient Health Record ---
Author Organization [facility] Address [address] [place] [address] Care Team Providers Care Forestry Fire Aid Name Role Phone Tati Martinez MD Primary Care Provider Lj Gomez Unavailable [phone] Reason For Referral No Information Problems Problem Type SNOMED Code ICD Code Onset Dates Problem Status W/U Status Risk Notes Problem Metatarsalgia (65413871) Metatarsalgia (726.70) Active confirmed Problem Onychomycosis (694440332) Onychomycosis (110.1) Active confirmed Problem Pain in limb (75623062) Pain in Limb (729.5) Active confirmed Problem Peroneal tendonitis (92593825) Peroneal Tendonitis (726.79) Active confirmed Problem Metatarsalgia (finding) (88621797) Plantarflexed Metatarsal (838.04) Active confirmed Plan Of Treatment Pending Test Test Name Order Date X ray : Foot, left 3V 01/29/2013 X ray : Foot, right 3V 01/29/2013 Insurance Providers Payer Name Payer Address Payer Phone Subscriber Number Group Number Insured Name Patient Relationship to Insured Coverage Start Date Coverage End Date [facility] [address] [place] [address] [phone] [id number] Jose Self - patient is the insured
[2024-10-20 11:19] LABS: MANUAL DIFF FLAG NO
[2024-10-20 11:37] LABS: Hematocrit 41.9 % (37.0-47.0); Hemoglobin 13.7 g/dl (12.0-16.0); Imm Gran Abs Auto 0.01 X10*3/uL (0.00-0.03); Imm Gran Pct Auto 0.2 % (0.0-0.4); Lymphocytes Absolute Auto 2.3 X10*3/uL (1.2-4.9); Mean Corpuscular HGB Conc 32.7 g/dl (31.0-35.0); Mean Corpuscular Hemoglobin 28.7 pg (27.0-33.0); Mean Corpuscular Volume 87.8 fL (80.0-98.0); NRBC Abs Auto 0.000 X10*3/uL (0.0-0.012); NRBC Pct Auto 0.0 /100WBC (0.0-0.2); Platelet Count 164 X10*3/uL (160-400); Red Blood Count 4.77 X10*6/uL (4.20-5.50); White Blood Count 6.4 X10*3/uL (4.8-10.8)
[2024-10-20 12:07] LABS: Alanine Aminotransferase 17 U/L (0-31); Albumin Level 4.0 g/dL (3.5-5.0); Alkaline Phosphatase 73 U/L (39-117); Anion Gap 12 (12-20); Aspartate Amino Transferase 28 U/L (5-31); Blood Urea Nitrogen 15 mg/dL (9-16); Calcium 8.9 mg/dL (8.4-10.2); Carbon Dioxide 24 mmol/L (22-29); Chloride 108 mmol/L (96-108); Cholesterol 244 mg/dL (<200); Estimated Glomerular Filt Rate > 60; HDL Cholesterol 51 mg/dL (>40); Potassium 3.9 mmol/L (3.3-5.1); Sodium 140 mmol/L (135-145); Total Protein 6.9 g/dL (6.5-8.0); Triglycerides 131 mg/dL (<150)
== END 2024-10-20 06:31 | disposition home or self-care (01) ==
LOC: HO.HMGCLDS 06:30
PROVIDERS: PCP Internal Medicine; Visit Provider Internal Medicine
DX: Z00.00 Encounter for general adult medical examination without abnormal findings (principal); I10 Essential (primary) hypertension; E55.9 Vitamin D deficiency, unspecified; E78.5 Hyperlipidemia, unspecified
CPT/HCPCS: 36415; 80053; 80061; 82306; 84443; 85025

== ENCOUNTER 2024-11-15 08:26 | Outpatient (AMB) | payer BC, SELFPAY ==
[2024-11-15 08:28] VITALS: BP 132/84; PULSE 68; TEMP 36.8; O2SAT 96; BMI 37.2
--- NOTE | 2024-11-15 08:28 | AM.OFFWIN_ITS ---
Intake Vital Signs 11/15/24 08:28 Height 5 ft 3 in Weight 210 lb BMI 37.2 BP 132/84 Blood Pressure Location Lt brachial Position Sitting Pulse 68 Pulse Source Pulse Oximeter Temp 98.2 F Temp Source Oral Pulse Oximetry (%) 96 Oxygen Delivery Method Room Air Intake Visit Reasons: EP RT leg burning Patient Tobacco Use Status: Former Tobacco user (2 a week) Telesales Advisor Required: No Is last menstrual period known: No Post menopausal: Yes Patient : No Allergies homatropine (From Hycodan (with homatropine)) Allergy (Severe, Verified 11/15/24 08:34) SOB hydrocodone (From Hycodan (with homatropine)) Allergy (Severe, Verified 11/15/24 08:34) SOB Do you need a note to return to daycare/school/sports/work: Yes HPI HPI Comments History of Present Illness Details 59 y/o Female patient who presents to [facility] walk in clinic with c/o Numbness/tingling right Upper Leg (Thigh region) for months now. She also reports burning/shooting pain at the bottom of right foot since this morning. She lost her this year in May and has been grieving with anxiety and depression. She saw her PCP who started her on Sertraline. She currently not Diabetic and recent labs WNL. [facility] Medical History Allergic rhinitis Cough Tobacco dependence Sinusitis HTN (hypertension) Annual physical exam No pertinent past medical history Surgical History History of appendectomy No pertinent past surgical history Family History Father No problems noted. 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 [employer] Sexual orientation: Straight/Heterosexual Gender identity: Female Cognitive needs: No Hearing needs: No Vision needs: Yes Review of Systems Const All systems reviewed & are unremarkable except as noted in HPI and below Physical Exam Vital Signs: Last Vital Signs Temp 98.2 F 11/15/24 08:28 Pulse 68 11/15/24 08:28 BP 132/84 11/15/24 08:28 Pulse Ox 96 11/15/24 08:28 Oxygen Delivery Method Room Air 11/15/24 08:28 BMI result Body Mass Index 37.2 Const General: comfortable and no acute distress Nutritional Appearance: overweight Orientation/consciousness: patient oriented x3 Neuro General: patient oriented x3, gait normal and moves all extremities Extrem Right lower extremity: hip/thigh Details: normal to inspection and normal ROM; no tenderness, no swelling and no unusual warmth, lower leg Details: normal to inspection and no edema; no erythema, no tenderness and no palpable cords and foot Details: normal capillary refill, normal to inspection, toes with normal ROM and no edema; no tenderness and no crepitus Left lower extremity: normal to inspection, full ROM and normal capillary refill Psych Speech and movement: Normal speech and movement present Assessment & Plan Assessment & Plan (1) Paresthesia of right leg: Code(s): R20.2 - Paresthesia of skin Plan: Started her on Gabapentin once daily at Bedtime. She may start Taking OTC Magnesium daily Will need to f/u with PCP Sooner. Medications: New gabapentin 300 mg PO BEDTIME 30 caps 0RF R20.2 - Paresthesia of skin Coding Level of Care Code Est Pt Level 4 (71130) Diagnoses Paresthesia of right leg R20.2 Time Spent (min) 20
--- OUTSIDE RECORDS SUMMARY | 2024-11-15 08:38 | XMS_ITS | Clinical Summary ---
Author Organization [facility] Address [address] [place] [address] Care Team Providers Care Electron Beam Welder Setter Name Role Phone Tenisha Raman DO [...] Upcoming Encounters Date Type Department Care Team ([facility] st Contact Info) Description 01/12/2025 9:30 AM EDT Appointment Radiology Department - [address] [phone] Health Maintenance Due Date Last Done Comments DTaP,Tdap,and Td Vaccines (1 - Tdap) 08/21/1983 Cervical Cancer Screening: Pap Smear 1985 Pneumococcal Vaccine: 50+ Years (1 of 1 - PCV) 2014 Zoster Vaccines (1 of 2) 2014 Cholesterol Screening (Lipid Panel) 03/20/2022 Colorectal Cancer Screening: Colonoscopy 03/20/2022 HIV Screening 03/20/2022 Hepatitis C Screening 03/20/2022 Social Influencers of Health Screening 03/20/2022 COVID-19 Vaccine (1 - season) 2023 Depression Screening 04/11/2024 Influenza Vaccine (#1) 2024 Breast Cancer Screening [...] Recommendation: Routine annual screening mammography is recommended [address] [id number] Procedure Note Margaret Chiang MD - 03/05/2024 [...] Recommendation: Routine annual screening mammography is recommended [address] [id number] us Tati Martinez MD IMG XR PROCEDURES Final Resul t from Last 3 Months or Most Recently Relevant to Health Maintenance Care Teams Electron Beam Welder Setter Relationship Specialty Start Date End Date Tenisha Raman DO PCP - General Internal Medicine 06/12/13
--- OUTSIDE RECORDS SUMMARY | 2024-11-15 08:38 | XMS_ITS | Patient Health Record ---
Author Organization [facility] Address [address] [place] [address] Care Team Providers Care Wood And Hardware Outfitter Name Role Phone Tati Martinez MD Primary Care Provider Lj Gomez Unavailable [phone] Reason For Referral No Information Problems Problem Type SNOMED Code ICD Code Onset Dates Problem Status W/U Status Risk Notes Problem Metatarsalgia (52607507) Metatarsalgia (726.70) Active confirmed Problem Onychomycosis (189061268) Onychomycosis (110.1) Active confirmed Problem Pain in limb (74824146) Pain in Limb (729.5) Active confirmed Problem Peroneal tendonitis (88107358) Peroneal Tendonitis (726.79) Active confirmed Problem Metatarsalgia (finding) (87521189) Plantarflexed Metatarsal (838.04) Active confirmed Plan Of Treatment Pending Test Test Name Order Date X ray : Foot, left 3V 01/29/2013 X ray : Foot, right 3V 01/29/2013 Insurance Providers Payer Name Payer Address Payer Phone Subscriber Number Group Number Insured Name Patient Relationship to Insured Coverage Start Date Coverage End Date [facility] [address] [place] [address] [phone] [id number] [phone] Jose Self - patient is the insured
== END 2024-11-15 08:57 | disposition home or self-care (01) ==
PROVIDERS: PCP Internal Medicine; Visit Provider Nurse Practitioner Family
DX: R20.2 Paresthesia of skin (principal)